=== PATIENT | male | born 1965 | race Caucasian/White ===

== ENCOUNTER 2021-05-11 10:39 | Inpatient (IN) ==
[2021-05-11] MEDS ORDERED: MULTI-VITAMIN INFUSION 10 ML, THIAMINE HCL 100 MG, FOLIC ACID 1 MG in SODIUM CHLORIDE 0... IV ONE (11:13)
[2021-05-11] MEDS ORDERED: LORazepam 1 MG/2 ML VIAL IV STA (11:13)
[2021-05-11] MEDS ORDERED: LORazepam 2 MG/4 ML VIAL IV STA (11:16)
--- NOTE | 2021-05-11 11:19 | Emergency Department Note ---
History of Present Illness General Chief complaint: Alcohol Withdrawal Stated complaint: Alcohol Withdrawal Time Seen by Provider: 05/11/21 11:06 Source: patient, family (Mother who is at the bedside) and old records reviewed Mode of arrival: ambulatory Limitations: no limitations History of Present Illness Maximum Pain Intensity: 10 This patient comes in after feeling like he is going to pass out and having alcohol withdrawal. He does have history of alcoholism and recently went on a binge for the last month or so where he was drinking about a 3/5 a day. His last alcohol was yesterday. He feels very shaky he feels like he is going to pass out. He has had some stomach upset. He had diarrhea couple days ago without any blood it may have been dark. Denies chest pain or shortness of breath. No fall or trauma. Denies drug use. Home Medications Medication Instructions Recorded Confirmed Type atorvastatin 40 mg tablet 40 mg PO DAILY #90 tab 11/11/19 05/11/21 Rx losartan 50 mg tablet 50 mg PO DAILY #90 tab 04/18/20 05/11/21 Rx fluoxetine 20 mg capsule 20 mg PO TID #270 cap 05/16/20 05/11/21 Rx ascorbate calcium-bioflavonoid 500 1 tab PO DAILY 05/11/21 05/11/21 History mg-200 mg tablet (Precious-C with Bioflavonoids) coenzyme Q10 100 mg capsule 100 mg PO DAILY 05/11/21 05/11/21 History (CoQ-10) folic acid 1 mg tablet 0 mg PO DAILY 05/11/21 05/11/21 History levomefolate disodium (bulk) 1 ea MISCELLANEOUS DAILY 05/11/21 05/11/21 History milk thistle 140 mg capsule 0 mg PO DAILY 05/11/21 05/11/21 History multivitamin 1 tab PO DAILY 05/11/21 05/11/21 History niacin 50 mg tablet 0 mg PO DAILY 05/11/21 05/11/21 History omeprazole 20 mg capsule,delayed 20 mg PO DAILY 05/11/21 05/11/21 History release turmeric 400 mg capsule 0 mg PO DAILY 05/11/21 05/11/21 History vitamin B complex 1 tab PO DAILY 05/11/21 05/11/21 History Allergies Allergy/AdvReac Type Severity Reaction Status Date / Time lisinopril AdvReac Cough Unverified 05/11/21 11:40 Past Med/Surg History Medical History (Updated 05/12/21 @ 18:54 by Mike Walter MD) Alcohol abuse Anxiety Depression Hyperlipidemia Hypertension Pneumonia Surgical History No history of previous surgery Family History Mother Anxiety Heart disease Hypertension Father Alcohol abuse Heart disease Hypertension Sister Anxiety Denies family history of Ovarian cancer Prostate cancer Myocardial infarction Breast cancer Colorectal cancer Social History Smoking Status: Current some day smoker Tobacco Type: Cigarettes Age Started Using Tobacco: 11; packs per day: 0.25; Cigarettes Per Day: 5; Second Hand Exposure: No; Do You Dip or Chew Tobacco: No; Hx Alcohol Use: Yes Alcohol type: hard liquor Hx Substance Use: No Preferred Language: Pashto Communication Ability: Effective Visual Impairment: No Limitations Hearing Ability: Normal 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[place] House Required: No Beliefs That Will Affect Care: None marital status: Single Current Living Situation: Parent current occupational status: unemployed How many Children do You have: 0 Other Information That Helps Us Care for You: No Feels Safe at Home: Yes Safety Concerns: Feels Safe At This Time Childhood Exposure to Second-Hand Smoke: No Dental Care, Regularly: No Physical Activity Frequency: 1-2 Times per Week Assistive Devices: Contacts, Glasses and Oxygen - at Night Review of Systems A total of 10 systems reviewed and were otherwise negative Physical Exam Vital Signs Vital Signs - 24 hr 05/11/21 10:54 05/11/21 11:28 Temperature 37 C Temperature Source Temporal Artery Scan Pulse Rate 106 H 98 H Pulse Rhythm Regular Respiratory Rate 18 20 Respiratory Effort / Characteristics Non-Labored Spontaneous Respiratory Depth Normal Respiratory Pattern Regular Blood Pressure 168/114 H Blood Pressure Mean 132 Blood Pressure Position Sitting Pulse Oximetry 97 99 Oxygen Delivery Method Room Air Room Air Sepsis Recent Fever Within 48 Hours No Sepsis New/Unexplained Change in Mental Status N/A Sepsis Action Taken by Nursing No Action Required General: Well developed well nourished shaky middle-age male who appears with normal mentation and in no acute respiratory distress, breathing comfortably on room air. Normal speech HEENT: Normal cephalic atraumatic. Pupils are equal round and reactive to light. Extraocular movements are intact. Oropharynx is pink with moist mucous membranes. No swelling of the mouth lips or tongue. Neck: Supple with a midline trachea. No meningeal signs or stiffness, no JVD or bruits. No Stridor. Chest: Clear to auscultation bilaterally. No wheezes or rhonchi. No increased work of breathing. Heart: Regular rate and rhythm without murmurs or gallops. Abdomen: Soft nontender, nondistended without rebound guarding or rigidity. Extremities: No cyanosis clubbing or edema. No calf tenderness or assymetry Spine/Back. Non tender to palpation. No CVA tenderness Skin: Good turgor without rashes. Neurologic exam: Cranial nerves two through 12 are intact. Motor and sensation are intact and symmetrical throughout. He does have a tremor. Course Administered Medications Famotidine (Famotidine 40 Mg Tablet) 40 mg PO QAM AMARI Stop: 06/11/21 08:59 Last Admin: 05/12/21 08:29 Dose: 40 mg Documented by: [id number] Fluoxetine HCl (Fluoxetine Hcl 20 Mg Cap) 20 mg PO TID AMARI Stop: 06/10/21 14:55 Last Admin: 05/12/21 13:57 Dose: 20 mg Documented by: [id number] Admin: 05/12/21 08:29 Dose: 20 mg Documented by: [id number] Admin: 05/11/21 21:27 Dose: 20 mg Documented by: [id number] Admin: 05/11/21 15:50 Dose: 20 mg Documented by: [id number] Gabapentin (Gabapentin 600 Mg Tab) 600 mg PO Q8H AMARI Stop: 05/13/21 06:01 Last Admin: 05/12/21 13:57 Dose: 600 mg Documented by: [id number] Thiamine HCl 100 mg/ Syringe 10 mls @ 2 mls/min IV QAM AMARI Stop: 06/10/21 14:55 Last Admin: 05/12/21 09:49 Dose: 2 mls/min Documented by: [id number] Admin: 05/11/21 15:49 Dose: 2 mls/min Documented by: [id number] Folic Acid 1 mg/ Syringe 10 mls @ 5 mls/min IV QAM AMARI Stop: 06/10/21 15:29 Last Admin: 05/12/21 09:49 Dose: 5 mls/min Documented by: [id number] Admin: 05/11/21 15:49 Dose: 5 mls/min Documented by: [id number] Lorazepam (Ativan) 1 mg in 2 mls @ 2 mls/min IV UD PRN; Protocol PRN Reason: EtOH Withdrawl AWSS Score 6,7 Stop: 06/10/21 14:55 Last Admin: 05/12/21 14:01 Dose: 2 mls/min Documented by: [id number] Admin: 05/12/21 08:28 Dose: 2 mls/min Documented by: [id number] Lorazepam (Ativan) 3 mg in 6 mls @ 4 mls/min IV ONCE PRN; Protocol PRN Reason: EtOH Withdrawl AWSS Score >=10 Stop: 06/10/21 14:55 Last Admin: 05/12/21 04:46 Dose: 4 mls/min Documented by: [id number] Admin: 05/11/21 22:10 Dose: 4 mls/min Documented by: [id number] Potassium Chloride/Sodium Chloride (Normal Saline W/20 Meq Kcl) 20 meq in 1,000 mls @ 150 mls/hr IV .Q6H40M [facility] Stop: 06/11/21 09:14 Last Admin: 05/12/21 16:54 Dose: 150 mls/hr Documented by: [id number] Infusion: 05/12/21 16:30 Dose: 150 mls/hr Documented by: [id number] Admin: 05/12/21 09:49 Dose: 150 mls/hr Documented by: [id number] Losartan Potassium (Losartan Potassium 50 Mg Tab) 50 mg PO DAILY [facility] Stop: 06/11/21 08:59 Last Admin: 05/12/21 08:27 Dose: 50 mg Documented by: [id number] Miscellaneous (Remove Nicoderm Patch) 1 ea N/A DAILY@0859 [facility] Stop: 06/11/21 08:58 Last Admin: 05/12/21 08:27 Dose: Not Given Documented by: [id number] Nicotine (Nicotine 21 Mg/24 Hr Tdsy) 21 mg TD QAM [facility] Stop: 06/11/21 08:59 Last Admin: 05/12/21 08:29 Dose: 21 mg Documented by: [id number] Discontinued Medications Diazepam (Diazepam 5 Mg Tablet) 10 mg PO NOW STA Stop: 05/11/21 13:39 Last Admin: 05/11/21 13:58 Dose: 10 mg Documented by: [id number] Gabapentin (Gabapentin 1200mg Alcohol Withdrawal Load) 1 ea PO NOW STA; Protocol Stop: 05/11/21 13:39 Last Admin: 05/11/21 15:33 Dose: Not Given Documented by: [id number] Gabapentin (Gabapentin 600 Mg Tab) 1,200 mg PO ONE ONE Stop: 05/11/21 14:01 Last Admin: 05/11/21 13:59 Dose: 1,200 mg Documented by: [id number] Gabapentin (Gabapentin 600 Mg Tab) 600 mg PO [facility] Stop: 05/12/21 06:01 Last Admin: 05/12/21 06:13 Dose: 600 mg Documented by: [id number] Admin: 05/11/21 21:27 Dose: 600 mg Documented by: [id number] Multivitamins 10 ml/ Thiamine HCl 100 mg/ Folic Acid 1 mg/Sodium Chloride 1,011.2 mls @ 1,011.2 mls/hr IV .Q1H ONE Stop: 05/11/21 12:12 Last Infusion: 05/11/21 12:35 Dose: 0 mls/hr Documented by: [id number] Admin: 05/11/21 11:35 Dose: 1,011.2 mls/hr Documented by: [id number] Lorazepam (Ativan) 2 mg in 4 mls @ 4 mls/min IV NOW STA Stop: 05/11/21 11:17 Last Admin: 05/11/21 11:29 Dose: 4 mls/min Documented by: [id number] Potassium Chloride 20 meq/ (Sodium Chloride) 1,010 mls @ 125 mls/hr IV .Q8H5M [facility] Stop: 05/12/21 07:05 Last Admin: 05/11/21 15:33 Dose: Not Given Documented by: [id number] Potassium Chloride/Sodium Chloride (Normal Saline W/20 Meq Kcl) 20 meq in 1,000 mls @ 125 mls/hr IV .Q8H AMARI Stop: 05/12/21 07:29 Last Infusion: 05/12/21 08:27 Dose: 0 mls/hr Documented by: [id number] Admin: 05/12/21 00:01 Dose: 125 mls/hr Documented by: [id number] Infusion: 05/11/21 23:49 Dose: 125 mls/hr Documented by: [id number] Admin: 05/11/21 15:49 Dose: 125 mls/hr Documented by: [id number] Potassium Chloride (Potassium Chloride Crtab 20 Meq Tabcr) 60 meq PO NOW STA Stop: 05/12/21 07:23 Last Admin: 05/12/21 08:28 Dose: 60 meq Documented by: [id number] Medical Decision Making Differential Diagnosis Alcohol withdrawal, dehydration, electrolyte or metabolic abnormality, toxicologic, cardiac disease Medical Records Attestation: I reviewed the patient's medical records. Home Medications Current Medication List: was personally reviewed by me Laboratory Data Attestation: I reviewed the patient's lab results. Result diagrams: 05/12/21 04:28 05/12/21 04:28 Lab Results 05/11/21 05/11/21 05/11/21 Range/Units 11:19 11:19 11:19 WBC 7.05 (4.8-10.8) K/uL RBC 4.55 L (4.7-6.1) M/uL Hgb 15.9 (14.0-18.0) g/dL Hct 44.1 (42-52) % MCV 96.9 (80-100) fL MCH 34.9 H (25-34) pg MCHC 36.1 H (32-36) g/dL RDW Std Deviation 48.6 H (36.4-46.3) fL RDW Coeff of Thelma 13.9 (11.5-14.5) % Plt Count 245 (130-400) K/uL MPV 8.5 (7.4-10.4) fL Immature Gran % (Auto) 0.3 % Neut % (Auto) 66.4 % Lymph % (Auto) 24.4 % [place] % (Auto) 8.5 % Eos % (Auto) 0.3 % Baso % (Auto) 0.1 % Neut # (Auto) 4.68 (1.4-6.5) K/uL Lymph # (Auto) 1.72 (1.2-3.4) K/uL [place] # (Auto) 0.60 H (0.11-0.59) K/uL Eos # (Auto) 0.02 (0-0.5) K/uL Baso # (Auto) 0.01 (0-0.2) K/uL Immature Gran # (Auto) 0.02 (0.00-0.02) K/uL PT 11.8 (9.0-12.0) Seconds INR 1.2 H (0.9-1.1) APTT 24.5 (21.0-31.0) Seconds PTT Ratio 0.9 Sodium 134 L (136-145) mmol/L Potassium 3.3 L (3.5-5.1) mmol/L Chloride 103 (98-107) mmol/L Carbon Dioxide 21 (21-32) mmol/L Anion Gap 10.0 (3-11) BUN 31 H (7-18) mg/dl Creatinine 0.90 (0.6-1.4) mg/dl Est Cr Clr Drug Dosing 83.0 ml/min Est GFR ( Amer) 110.3 ml/min Est GFR (Non-Af Amer) 95.1 ml/min BUN/Creatinine Ratio 34.7 H (10-20) Glucose 131 H (70-99) mg/dl POC Glucose (70-99) mg/dl Calcium 7.6 L (8.5-10.1) mg/dl Magnesium 2.3 (1.8-2.4) mg/dl Total Bilirubin 2.0 H (0.2-1) mg/dl AST 714 H (15-37) U/L ALT 692 H (12-78) U/L Alkaline Phosphatase 101 (45-117) U/L Troponin I < 0.015 (0-0.045) ng/ml Total Protein 6.8 (6.4-8.2) gm/dl Albumin 3.3 L (3.4-5.0) gm/dl Globulin 3.5 (2.5-4.0) gm/dl Albumin/Globulin Ratio 0.9 (0.9-2) Specimen Hemolysis Salicylates (2.8-20) mg/dl Acetaminophen (10-30) ug/ml Ethyl Alcohol mg/dL (0-3) mg/dl COVID-19 Eval Order SARS-CoV-2 (PCR) (Negative) 05/11/21 05/11/21 05/11/21 Range/Units 11:19 11:34 11:47 WBC (4.8-10.8) K/uL RBC (4.7-6.1) M/uL Hgb (14.0-18.0) g/dL Hct (42-52) % MCV (80-100) fL MCH (25-34) pg MCHC (32-36) g/dL RDW Std Deviation (36.4-46.3) fL RDW Coeff of Thelma (11.5-14.5) % Plt Count (130-400) K/uL MPV (7.4-10.4) fL Immature Gran % (Auto) % Neut % (Auto) % Lymph % (Auto) % [place] % (Auto) % Eos % (Auto) % Baso % (Auto) % Neut # (Auto) (1.4-6.5) K/uL Lymph # (Auto) (1.2-3.4) K/uL [place] # (Auto) (0.11-0.59) K/uL Eos # (Auto) (0-0.5) K/uL Baso # (Auto) (0-0.2) K/uL Immature Gran # (Auto) (0.00-0.02) K/uL PT (9.0-12.0) Seconds INR (0.9-1.1) APTT (21.0-31.0) Seconds PTT Ratio Sodium (136-145) mmol/L Potassium (3.5-5.1) mmol/L Chloride (98-107) mmol/L Carbon Dioxide (21-32) mmol/L Anion Gap (3-11) BUN (7-18) mg/dl Creatinine (0.6-1.4) mg/dl Est Cr Clr Drug Dosing ml/min Est GFR ( Amer) ml/min Est GFR (Non-Af Amer) ml/min BUN/Creatinine Ratio (10-20) Glucose (70-99) mg/dl POC Glucose 119 H (70-99) mg/dl Calcium (8.5-10.1) mg/dl Magnesium (1.8-2.4) mg/dl Total Bilirubin (0.2-1) mg/dl AST (15-37) U/L ALT (12-78) U/L Alkaline Phosphatase (45-117) U/L Troponin I (0-0.045) ng/ml Total Protein (6.4-8.2) gm/dl Albumin (3.4-5.0) gm/dl Globulin (2.5-4.0) gm/dl Albumin/Globulin Ratio (0.9-2) Specimen Hemolysis Salicylates < 1.7 L (2.8-20) mg/dl Acetaminophen < 2 L (10-30) ug/ml Ethyl Alcohol mg/dL 69.0 H (0-3) mg/dl COVID-19 Eval Order SARS-CoV-2 (PCR) (Negative) 05/11/21 05/11/21 Range/Units 12:33 12:33 WBC (4.8-10.8) K/uL RBC (4.7-6.1) M/uL Hgb (14.0-18.0) g/dL Hct (42-52) % MCV (80-100) fL MCH (25-34) pg MCHC (32-36) g/dL RDW Std Deviation (36.4-46.3) fL RDW Coeff of [place] (11.5-14.5) % Plt Count (130-400) K/uL MPV (7.4-10.4) fL Immature Gran % (Auto) % Neut % (Auto) % Lymph % (Auto) % [place] % (Auto) % Eos % (Auto) % Baso % (Auto) % Neut # (Auto) (1.4-6.5) K/uL Lymph # (Auto) (1.2-3.4) K/uL [place] # (Auto) (0.11-0.59) K/uL Eos # (Auto) (0-0.5) K/uL Baso # (Auto) (0-0.2) K/uL Immature Gran # (Auto) (0.00-0.02) K/uL PT (9.0-12.0) Seconds INR (0.9-1.1) APTT (21.0-31.0) Seconds PTT Ratio Sodium (136-145) mmol/L Potassium (3.5-5.1) mmol/L Chloride (98-107) mmol/L Carbon Dioxide (21-32) mmol/L Anion Gap (3-11) BUN (7-18) mg/dl Creatinine (0.6-1.4) mg/dl Est Cr Clr Drug Dosing ml/min Est GFR ( Amer) ml/min Est GFR (Non-Af Amer) ml/min BUN/Creatinine Ratio (10-20) Glucose (70-99) mg/dl POC Glucose (70-99) mg/dl Calcium (8.5-10.1) mg/dl Magnesium (1.8-2.4) mg/dl Total Bilirubin (0.2-1) mg/dl AST (15-37) U/L ALT (12-78) U/L Alkaline Phosphatase (45-117) U/L Troponin I (0-0.045) ng/ml Total Protein (6.4-8.2) gm/dl Albumin (3.4-5.0) gm/dl Globulin (2.5-4.0) gm/dl Albumin/Globulin Ratio (0.9-2) Specimen Hemolysis Salicylates (2.8-20) mg/dl Acetaminophen (10-30) ug/ml Ethyl Alcohol mg/dL (0-3) mg/dl COVID-19 Eval Order Covid19 at [facility] SARS-CoV-2 (PCR) NEGATIVE (Negative) ECG Data Attestation: I personally reviewed and interpreted this ECG as follows: Indication: + toxicologic and + weakness Rate (beats per minute): 100 Rhythm: + normal sinus ECG Intervals/blocks: + Normal QRS, + Prolonged QT and + Normal [place] ECG [place]: + Normal ECG ST segments: + Nonspecific ST abnormalities ECG Findings: + PVCs; no PACs Comparison ECG Date: from (07/21/15) Change: the following changes noted (PVCs are present) MDM Narrative This patient comes in as described above he presents with alcohol withdrawal. He is shaky and tachycardic as well as hypertensive. IV access established, I did order him Ativan 2 mg IV and he has had these doses before. He was also given an IV banana bag. Multiple blood testing was obtained. he was placed on a speed operator EKG was obtained. He was reassessed frequently. He was feeling a lot better with the Ativan his blood pressure did come down as did his pulse. He is certainly at high risk for withdrawal. He has no significant electrolyte or metabolic abnormalities. EKG does not show any ischemic changes or ectopy. I do think he needs to be admitted/observe for alcohol withdrawal. He is willing to go into rehab he has been in inpatient rehab 3 times but none locally. I have consulted hospitalist to see him in the ER for these measures. Covid testing was negative. Continuous speed operator: An order was placed in EMR for continuous cardiac monitoring and upon my interpretation the patient was noted to be sinus tachycardic at a rate of 100. Impression & Plan Alcohol withdrawal, Anxiety, Nausea, Weakness, Lab test negative for COVID-19 virus Discharge Plan Visit Data Chief Complaint: Alcohol Withdrawal Stated Complaint: Alcohol Withdrawal ED Provider: Mike Walter Discharge Problem: Alcohol withdrawal, Anxiety, Nausea, Weakness, Lab test negative for COVID-19 virus Patient Disposition: Admitted As Inpatient Discharge Instructions Interventions: ED Discharge Assessment Last Done: 05/11/21 14:25 Discharge Problem: Alcohol withdrawal Qualifiers: Complication of substance-induced condition: uncomplicated Qualified Code(s): F10.230 - Alcohol dependence with withdrawal, uncomplicated
[2021-05-11 11:48] LABS: Basophils # (auto) 0.01 K/uL (0-0.2); Basophils % (auto) 0.1 %; Eosinophils # (auto) 0.02 K/uL (0-0.5); Eosinophils % (auto) 0.3 %; Hematocrit (blood only) 44.1 % (42-52); Hemoglobin 15.9 g/dL (14.0-18.0); Immature Granulocytes # (auto) 0.02 K/uL (0.00-0.02); Immature Granulocytes % (auto) 0.3 %; Lymphocytes # (auto) 1.72 K/uL (1.2-3.4); Lymphocytes % (auto) 24.4 %; Mean Corpuscular Hemoglobin 34.9 pg (25-34); Mean Corpuscular Hgb Conc 36.1 g/dL (32-36); Mean Corpuscular Volume 96.9 fL (80-100); Mean Platelet Volume 8.5 fL (7.4-10.4); Monocytes % (auto) 8.5 %; Neutrophils # (auto) 4.68 K/uL (1.4-6.5); Neutrophils % (auto) 66.4 %; Platelet Count 245 K/uL (130-400); RDW Coefficient of Variation 13.9 % (11.5-14.5); RDW Standard Deviation 48.6 fL (36.4-46.3); Red Blood Count 4.55 M/uL (4.7-6.1); White Blood Count 7.05 K/uL (4.8-10.8)
[2021-05-11 11:57] LABS: INR 1.2 (0.9-1.1); Partial Thromboplastin Ratio 0.9; Partial Thromboplastin Time 24.5 Seconds (21.0-31.0); Prothrombin Time 11.8 Seconds (9.0-12.0)
[2021-05-11 12:32] LABS: Alanine Aminotransferase 692 U/L (12-78); Albumin Globulin Ratio 0.9 (0.9-2); Albumin Level 3.3 gm/dl (3.4-5.0); Alkaline Phosphatase 101 U/L (45-117); BUN Creatinine Ratio 34.7 (10-20); Blood Urea Nitrogen 31 mg/dl (7-18); Calcium 7.6 mg/dl (8.5-10.1); Carbon Dioxide 21 mmol/L (21-32); Chloride 103 mmol/L (98-107); Est GFR (African American) 110.3 ml/min; Est GFR (Non-African American) 95.1 ml/min; Globulin 3.5 gm/dl (2.5-4.0); Glucose 131 mg/dl (70-99); Total Protein 6.8 gm/dl (6.4-8.2); Troponin I < 0.015 ng/ml (0-0.045)
[2021-05-11 12:33] LABS: Acetaminophen < 2 ug/ml (10-30); Salicylate < 1.7 mg/dl (2.8-20)
[2021-05-11 12:47] LABS: Aspartate Aminotransferase 714 U/L (15-37); Magnesium 2.3 mg/dl (1.8-2.4); Potassium 3.3 mmol/L (3.5-5.1); Sodium 134 mmol/L (136-145)
[2021-05-11] MEDS ORDERED: diazePAM 5 MG TABLET PO STA (13:38)
[2021-05-11] MEDS ORDERED: GABAPENTIN 1200MG ALCOHOL WITHDRAWAL LOAD PO STA (13:38)
--- NOTE | 2021-05-11 13:40 | History & Physical Report ---
Date of Service May 11, 2021 Assessment & Plan (1) Alcohol withdrawal: Plan: 55yo male with longstanding history of EtOH abuse presenting in EtOH withdrawal. Patient admits to drinking 2-3 bottles of vodka/day for the last month. He has history of withdrawal symptoms, ?DTs in the past - no history of seizure. Last drink 05/10/21 around 19:00. EtoH level =69 today. Acute elevation of AST/ALT suggest alcoholic hepatitis. MDF 5.6 - no indication for steroids. Patient received banana bag x 1L in ER -Admit to PCU -Maintain seizure precautions -Valium 10mg po x 1, may repeat if patient is requiring frequent doses of IV Ativan -Gabapentin taper -AWSS with IV ativan PRN -Folic acid 1mg IV daily -Thiamine 100mg IV daily -Consider Psychiatry consultation and rehabilitation placement after acute issues resolve -Repeat LFTs in AM (2) GERD (gastroesophageal reflux disease): Plan: Chronic -Will give Pepcid 40mg po qAM (3) Hypertension: Plan: Blood pressure elevated -Withdrawal management as above -Continue losartan 50mg po daily -Continue to monitor (4) Hyperlipidemia: Plan: Chronic -Will hold statin for now in setting of elevated LFTs -Repeat LFTs in AM (5) Depression: Plan: Chronic. -Continue Prozac 20mg po TID as dosed at home -Consider Psychiatry evaluation Plan: F/E/N - NSS +KCl 20mEq x 2 liters at 125mL/hr, K repletion, repeat chemistry in AM, NPO for now Ppx - SCDs Code - Full per discussion with patient Dispo - Admit to PCU History of Present Illness Chief Complaint: EtOH withdrawal Primary Care Provider: Lenny Briceño Gregorio Perez is a 55yo male with history of Depression/Anxiety and EtOH abuse presenting with Etoh withdrawal. Patient's mother is at bedside as well and provides supplemental history. Patient reports being a fairly heavy drinker since 1989. He has participated in rehab in the past - [facility] x 2 and most recently [facility] in 2018. He has never been to AA and does not identify as "an alcoholic". He does acknowledge that his drinking is a problem. He presents today with EtoH withdrawal. His mother states that he drinks in secret and has been unable to maintain gainful employment - he has quit several jobs. He had been binge drinking since December - reports consuming 2-3 1/5L bottles of Vodka/day. Mother reports he has occasionally become incoherent with hallucinations during this binge. His last drink was yesterday around 19:00. He presents today with abdominal pain, nausea, vomiting, chills and sweats since last night. No additional complaints at this time. Allergies Allergy/AdvReac Type Severity Reaction Status Date / Time lisinopril AdvReac Cough Unverified 05/11/21 11:40 Home Medications Medication Instructions Recorded Confirmed Type atorvastatin 40 mg tablet 40 mg PO DAILY #90 tab 11/11/19 05/11/21 Rx losartan 50 mg tablet 50 mg PO DAILY #90 tab 04/18/20 05/11/21 Rx fluoxetine 20 mg capsule 20 mg PO TID #270 cap 05/16/20 05/11/21 Rx ascorbate calcium-bioflavonoid 500 1 tab PO DAILY 05/11/21 05/11/21 History mg-200 mg tablet (Precious-C with Bioflavonoids) coenzyme Q10 100 mg capsule 100 mg PO DAILY 05/11/21 05/11/21 History (CoQ-10) folic acid 1 mg tablet 0 mg PO DAILY 05/11/21 05/11/21 History levomefolate disodium (bulk) 1 ea MISCELLANEOUS DAILY 05/11/21 05/11/21 History milk thistle 140 mg capsule 0 mg PO DAILY 05/11/21 05/11/21 History multivitamin 1 tab PO DAILY 05/11/21 05/11/21 History niacin 50 mg tablet 0 mg PO DAILY 05/11/21 05/11/21 History omeprazole 20 mg capsule,delayed 20 mg PO DAILY 05/11/21 05/11/21 History release turmeric 400 mg capsule 0 mg PO DAILY 05/11/21 05/11/21 History vitamin B complex 1 tab PO DAILY 05/11/21 05/11/21 History Past Med/Surg History Medical History (Updated 05/11/21 @ 20:07 by Brenna Garza DO) Alcohol abuse Anxiety Depression Hyperlipidemia Hypertension Pneumonia Surgical History No history of previous surgery Family History Mother Anxiety Heart disease Hypertension Father Alcohol abuse Heart disease Hypertension Sister Anxiety Denies family history of Ovarian cancer Prostate cancer Myocardial infarction Breast cancer Colorectal cancer Social History Smoking Status: Current some day smoker Tobacco Type: Cigarettes Age Started Using Tobacco: 11; packs per day: 0.25; Cigarettes Per Day: 5; Second Hand Exposure: No; Hx Alcohol Use: Yes Alcohol type: hard liquor Hx Substance Use: No Preferred Language: Guinean Communication Ability: Effective Visual Impairment: No Limitations Hearing Ability: Normal Tree Wrapper Required: No Beliefs That Will Affect Care: None marital status: Single Current Living Situation: Parent current occupational status: unemployed Other Information That Helps Us Care for You: No Feels Safe at Home: Yes Safety Concerns: Feels Safe At This Time Childhood Exposure to Second-Hand Smoke: No Dental Care, Regularly: No Physical Activity Frequency: 1-2 Times per Week Assistive Devices: Contacts and Glasses Review of Systems Review of Systems: General: Patient denies fevers, chills Skin: Patient denies bruising, bleeding or rash HEENT: Patient denies headache, visual changes, sore throat, difficulty swallowing, stiff neck Cardio: Patient denies chest pain, palpitations, shortness of breath, lighth eadedness Pulmonary: Patient denies cough, wheeze GI: Patient denies diarrhea, constipation : Patient denies dysuria, frequency, urgency or hematuria Musculoskeletal: Patient denies swelling or pain of the joints, edema Neuro: Patient denies numbness, tingling, weakness or falls Psych: Patient denies depression, anxiety Physical Exam Physical Exam: General: patient tremulous, mildly diaphoretic Skin: warm, dry, intact, no rashes or lesions HEENT: NC/AT, PERRL, EOMI, anicteric sclera, conjunctiva without injection, external ear normal to inspection and nontender, nares patent, moist mucus membranes, dentition intact, no oropharyngeal lesions, neck supple, trachea midline, no LAD, no thyromegaly, no JVD Heart: +S1/S2, regular, no m/r/g Lungs: equal air entry bilaterally, no rales/rhonchi/wheezes Abd: +BS, soft, NT/ND, no masses/organomegaly/ascites Ext: warm, 2+ pulses in UE/LE bilaterally, no clubbing/cyanosis or edema Neuro: nonfocal, patient AA&O x 4, speech intact, no facial droop, moving all extremities on command with equal strength 5/5 Results & Data Results & Data ([facility]) Vital Signs (Past 12 Hours) Vital Signs Temp Pulse Resp BP Pulse Ox 05/11/21 11:28 98 H 20 99 05/11/21 10:54 37 C 106 H 18 168/114 H 97 Laboratory Results Lab Results 05/11/21 05/11/21 05/11/21 Range/Units 11:19 11:19 11:19 WBC 7.05 (4.8-10.8) K/uL RBC 4.55 L (4.7-6.1) M/uL Hgb 15.9 (14.0-18.0) g/dL Hct 44.1 (42-52) % MCV 96.9 (80-100) fL MCH 34.9 H (25-34) pg MCHC 36.1 H (32-36) g/dL RDW Std Deviation 48.6 H (36.4-46.3) fL RDW Coeff of Thelma 13.9 (11.5-14.5) % Plt Count 245 (130-400) K/uL MPV 8.5 (7.4-10.4) fL Immature Gran % (Auto) 0.3 % Neut % (Auto) 66.4 % Lymph % (Auto) 24.4 % Dillon % (Auto) 8.5 % Eos % (Auto) 0.3 % Baso % (Auto) 0.1 % Neut # (Auto) 4.68 (1.4-6.5) K/uL Lymph # (Auto) 1.72 (1.2-3.4) K/uL Dillon # (Auto) 0.60 H (0.11-0.59) K/uL Eos # (Auto) 0.02 (0-0.5) K/uL Baso # (Auto) 0.01 (0-0.2) K/uL Immature Gran # (Auto) 0.02 (0.00-0.02) K/uL PT 11.8 (9.0-12.0) Seconds INR 1.2 H (0.9-1.1) APTT 24.5 (21.0-31.0) Seconds PTT Ratio 0.9 Sodium 134 L (136-145) mmol/L Potassium 3.3 L (3.5-5.1) mmol/L Chloride 103 (98-107) mmol/L Carbon Dioxide 21 (21-32) mmol/L Anion Gap 10.0 (3-11) BUN 31 H (7-18) mg/dl Creatinine 0.90 (0.6-1.4) mg/dl Est Cr Clr Drug Dosing 83.0 ml/min Est GFR ( Amer) 110.3 ml/min Est GFR (Non-Af Amer) 95.1 ml/min BUN/Creatinine Ratio 34.7 H (10-20) Glucose 131 H (70-99) mg/dl POC Glucose (70-99) mg/dl Calcium 7.6 L (8.5-10.1) mg/dl Magnesium 2.3 (1.8-2.4) mg/dl Total Bilirubin 2.0 H (0.2-1) mg/dl AST 714 H (15-37) U/L ALT 692 H (12-78) U/L Alkaline Phosphatase 101 (45-117) U/L Troponin I < 0.015 (0-0.045) ng/ml Total Protein 6.8 (6.4-8.2) gm/dl Albumin 3.3 L (3.4-5.0) gm/dl Globulin 3.5 (2.5-4.0) gm/dl Albumin/Globulin Ratio 0.9 (0.9-2) Vitamin B12 (193-986) pg/ml Folate (>5.38) ng/ml Specimen Hemolysis Nasal Screen MRSA (PCR) (Negative) Salicylates (2.8-20) mg/dl Urine Opiates Screen (Neg) Ur Methadone, Qual (Neg) Acetaminophen (10-30) ug/ml Urine Barbiturates (Neg) Ur Phencyclidine (PCP) (Neg) U Amphetamin/Meth Scrn (Neg) MDMA (Ecstasy) Screen (Neg) U Benzodiazepines Scrn (Neg) Ur Cocaine Metabolite (Neg) U Marijuana (THC) Screen (Neg) Ethyl Alcohol mg/dL (0-3) mg/dl COVID-19 Eval Order SARS-CoV-2 (PCR) (Negative) 05/11/21 05/11/2105/11/21 Range/Units 11:19 11:34 11:47 WBC (4.8-10.8) K/uL RBC (4.7-6.1) M/uL Hgb (14.0-18.0) g/dL Hct (42-52) % MCV (80-100) fL MCH (25-34) pg MCHC (32-36) g/dL RDW Std Deviation (36.4-46.3) fL RDW Coeff of Thelma (11.5-14.5) % Plt Count (130-400) K/uL MPV (7.4-10.4) fL Immature Gran % (Auto) % Neut % (Auto) % Lymph % (Auto) % Dillon % (Auto) % Eos % (Auto) % Baso % (Auto) % Neut # (Auto) (1.4-6.5) K/uL Lymph # (Auto) (1.2-3.4) K/uL Dillon # (Auto) (0.11-0.59) K/uL Eos # (Auto) (0-0.5) K/uL Baso # (Auto) (0-0.2) K/uL Immature Gran # (Auto) (0.00-0.02) K/uL PT (9.0-12.0) Seconds INR (0.9-1.1) APTT (21.0-31.0) Seconds PTT Ratio Sodium (136-145) mmol/L Potassium (3.5-5.1) mmol/L Chloride (98-107) mmol/L Carbon Dioxide (21-32) mmol/L Anion Gap (3-11) BUN (7-18) mg/dl Creatinine (0.6-1.4) mg/dl Est Cr Clr Drug Dosing ml/min Est GFR ( Amer) ml/min Est GFR (Non-Af Amer) ml/min BUN/Creatinine Ratio (10-20) Glucose (70-99) mg/dl POC Glucose 119 H (70-99) mg/dl Calcium (8.5-10.1) mg/dl Magnesium (1.8-2.4) mg/dl Total Bilirubin (0.2-1) mg/dl AST (15-37) U/L ALT (12-78) U/L Alkaline Phosphatase (45-117) U/L Troponin I (0-0.045) ng/ml Total Protein (6.4-8.2) gm/dl Albumin (3.4-5.0) gm/dl Globulin (2.5-4.0) gm/dl Albumin/Globulin Ratio (0.9-2) Vitamin B12 (193-986) pg/ml Folate (>5.38) ng/ml Specimen Hemolysis Nasal Screen MRSA (PCR) (Negative) Salicylates < 1.7 L (2.8-20) mg/dl Urine Opiates Screen (Neg) Ur Methadone, Qual (Neg) Acetaminophen < 2 L (10-30) ug/ml Urine Barbiturates (Neg) Ur Phencyclidine (PCP) (Neg) U Amphetamin/Meth Scrn (Neg) MDMA (Ecstasy) Screen (Neg) U Benzodiazepines Scrn (Neg) Ur Cocaine Metabolite (Neg) U Marijuana (THC) Screen (Neg) Ethyl Alcohol mg/dL 69.0 H (0-3) mg/dl COVID-19 Eval Order SARS-CoV-2 (PCR) (Negative) 05/11/21 05/11/21 05/11/21 Range/Units 12:33 12:33 13:45 WBC (4.8-10.8) K/uL RBC (4.7-6.1) M/uL Hgb (14.0-18.0) g/dL Hct (42-52) % MCV (80-100) fL MCH (25-34) pg MCHC (32-36) g/dL RDW Std Deviation (36.4-46.3) fL RDW Coeff of Thelma (11.5-14.5) % Plt Count (130-400) K/uL MPV (7.4-10.4) fL Immature Gran % (Auto) % Neut % (Auto) % Lymph % (Auto) % Dillon % (Auto) % Eos % (Auto) % Baso % (Auto) % Neut # (Auto) (1.4-6.5) K/uL Lymph # (Auto) (1.2-3.4) K/uL Dillon # (Auto) (0.11-0.59) K/uL Eos # (Auto) (0-0.5) K/uL Baso # (Auto) (0-0.2) K/uL Immature Gran # (Auto) (0.00-0.02) K/uL PT (9.0-12.0) Seconds INR (0.9-1.1) APTT (21.0-31.0) Seconds PTT Ratio Sodium (136-145) mmol/L Potassium (3.5-5.1) mmol/L Chloride (98-107) mmol/L Carbon Dioxide (21-32) mmol/L Anion Gap (3-11) BUN (7-18) mg/dl Creatinine (0.6-1.4) mg/dl Est Cr Clr Drug Dosing ml/min Est GFR ( Amer) ml/min Est GFR (Non-Af Amer) ml/min BUN/Creatinine Ratio (10-20) Glucose (70-99) mg/dl POC Glucose (70-99) mg/dl Calcium (8.5-10.1) mg/dl Magnesium (1.8-2.4) mg/dl Total Bilirubin (0.2-1) mg/dl AST (15-37) U/L ALT (12-78) U/L Alkaline Phosphatase (45-117) U/L Troponin I (0-0.045) ng/ml Total Protein (6.4-8.2) gm/dl Albumin (3.4-5.0) gm/dl Globulin (2.5-4.0) gm/dl Albumin/Globulin Ratio (0.9-2) Vitamin B12 (193-986) pg/ml Folate (>5.38) ng/ml Specimen Hemolysis Nasal Screen MRSA (PCR) (Negative) Salicylates (2.8-20) mg/dl Urine Opiates Screen Neg (Neg) Ur Methadone, Qual Neg (Neg) Acetaminophen (10-30) ug/ml Urine Barbiturates Neg (Neg) Ur Phencyclidine (PCP) Neg (Neg) U Amphetamin/Meth Scrn Neg (Neg) MDMA (Ecstasy) Screen Neg (Neg) U Benzodiazepines Scrn Neg (Neg) Ur Cocaine Metabolite Neg (Neg) U Marijuana (THC) Screen Neg (Neg) Ethyl Alcohol mg/dL (0-3) mg/dl COVID-19 Eval Order Covid19 at [facility] SARS-CoV-2 (PCR) NEGATIVE (Negative) 05/11/21 05/11/21 Range/Units 15:21 15:30 WBC (4.8-10.8) K/uL RBC (4.7-6.1) M/uL Hgb (14.0-18.0) g/dL Hct (42-52) % MCV (80-100) fL MCH (25-34) pg MCHC (32-36) g/dL RDW Std Deviation (36.4-46.3) fL RDW Coeff of Thelma (11.5-14.5) % Plt Count (130-400) K/uL MPV (7.4-10.4) fL Immature Gran % (Auto) % Neut % (Auto) % Lymph % (Auto) % Dillon % (Auto) % Eos % (Auto) % Baso % (Auto) % Neut # (Auto) (1.4-6.5) K/uL Lymph # (Auto) (1.2-3.4) K/uL Dillon # (Auto) (0.11-0.59) K/uL Eos # (Auto) (0-0.5) K/uL Baso # (Auto) (0-0.2) K/uL Immature Gran # (Auto) (0.00-0.02) K/uL PT (9.0-12.0) Seconds INR (0.9-1.1) APTT (21.0-31.0) Seconds PTT Ratio Sodium (136-145) mmol/L Potassium (3.5-5.1) mmol/L Chloride (98-107) mmol/L Carbon Dioxide (21-32) mmol/L Anion Gap (3-11) BUN (7-18) mg/dl Creatinine (0.6-1.4) mg/dl Est Cr Clr Drug Dosing ml/min Est GFR ( Amer) ml/min Est GFR (Non-Af Amer) ml/min BUN/Creatinine Ratio (10-20) Glucose (70-99) mg/dl POC Glucose (70-99) mg/dl Calcium (8.5-10.1) mg/dl Magnesium (1.8-2.4) mg/dl Total Bilirubin (0.2-1) mg/dl AST (15-37) U/L ALT (12-78) U/L Alkaline Phosphatase (45-117) U/L Troponin I (0-0.045) ng/ml Total Protein (6.4-8.2) gm/dl Albumin (3.4-5.0) gm/dl Globulin (2.5-4.0) gm/dl Albumin/Globulin Ratio (0.9-2) Vitamin B12 1007 H (193-986) pg/ml Folate > 20.00 (>5.38) ng/ml Specimen Hemolysis Nasal Screen MRSA (PCR) Negative (Negative) Salicylates (2.8-20) mg/dl Urine Opiates Screen (Neg) Ur Methadone, Qual (Neg) Acetaminophen (10-30) ug/ml Urine Barbiturates (Neg) Ur Phencyclidine (PCP) (Neg) U Amphetamin/Meth Scrn (Neg) MDMA (Ecstasy) Screen (Neg) U Benzodiazepines Scrn (Neg) Ur Cocaine Metabolite (Neg) U Marijuana (THC) Screen (Neg) Ethyl Alcohol mg/dL (0-3) mg/dl COVID-19 Eval Order SARS-CoV-2 (PCR) (Negative) PG Care Time/CCT Total # of Minutes Spent Total Time Spent with Patient: Total time spent is greater than 50% in coordination of care (as documented) at patient's floor/unit and/or counseling patient: Coding Level of Care Code 79123 Initial Inpt Care Lvl 3 Diagnoses Alcohol withdrawal F10.230 Complication of substance-induced condition: uncomplicated GERD (gastroesophageal reflux disease) K21.9 Hypertension I10 Hyperlipidemia E78.5 Depression F32.9 (1) Alcohol withdrawal Complication of substance-induced condition: uncomplicated Qualified Code(s): F10.230 - Alcohol dependence with withdrawal, uncomplicated
[2021-05-11] MEDS ORDERED: GABAPENTIN 600 MG TAB PO ONE ×2 (14:00→14:56)
[2021-05-11 14:17] LABS: Amphetamines+Metham, Urine Neg (Neg); Barbiturates, Urine Neg (Neg); Benzodiazepine, Urine Neg (Neg); Cocaine, Urine Neg (Neg); MDMA (Ecstacy), Urine Neg (Neg); Methadone, Urine Neg (Neg); Opiate, Urine Neg (Neg); Phencyclidine, Urine Neg (Neg)
--- NOTE | 2021-05-11 14:25 | Electrocardiogram Report ---
Test Reason : Blood Pressure : / mmHG Vent. Rate : 100 BPM Atrial Rate : 100 BPM P-R Int : 146 ms QRS Dur : 090 ms QT Int : 360 ms P-R-T Axes : 048 044 119 degrees QTc Int : 464 ms Sinus rhythm with occasional Premature ventricular complexes Diffuse Nonspecific T wave abnormality Prolonged QT Abnormal ECG When compared with ECG of 21-JUL-2015 16:52, Premature ventricular complexes are now Present Confirmed by Giovany Samson ([id number]) on 05/11/2021 2:24:49 PM Referred By: REFERRED SELF Confirmed By:Giovany Samson
[2021-05-11] MEDS ORDERED: POTASSIUM CHLORIDE 20 MEQ in SODIUM CHLORIDE 0.9% 1000ML 1,000 ML IV SCH (14:56)
[2021-05-11] MEDS ORDERED: ATIVAN IV ALCOHOL WITHDRAWL IV PRN (14:56)
[2021-05-11] MEDS: THIAMINE HCL 100 MG in SYRINGE 9 ML IV SCH (15:49)
[2021-05-11] MEDS: NSS + 20MEQ KCL 20 MEQ/1,000 ML BAG IV SCH (15:49)
[2021-05-11] MEDS: FOLIC ACID 1 MG in SYRINGE 9.8 ML IV SCH (15:49)
[2021-05-11] MEDS: FLUoxetine HCL 20 MG CAP PO SCH ×2 (15:50→21:27)
[2021-05-11 16:27] LABS: Folate (Folic Acid) > 20.00 ng/ml (>5.38); Vitamin B12 1007 pg/ml (193-986)
[2021-05-11] MEDS ORDERED: GABAPENTIN 600 MG TAB PO SCH (20:00)
[2021-05-11] MEDS: GABAPENTIN 600 MG TAB PO SCH (21:27)
[2021-05-11] MEDS: LORazepam 3 MG/6 ML VIAL IV PRN (22:10)
[2021-05-12] MEDS: NSS + 20MEQ KCL 20 MEQ/1,000 ML BAG IV SCH ×4 (00:01→23:58)
[2021-05-12 04:43] LABS: Basophils # (auto) 0.01 K/uL (0-0.2); Basophils % (auto) 0.1 %; Eosinophils # (auto) 0.15 K/uL (0-0.5); Eosinophils % (auto) 1.8 %; Hematocrit (blood only) 40.4 % (42-52); Hemoglobin 14.3 g/dL (14.0-18.0); Immature Granulocytes # (auto) 0.03 K/uL (0.00-0.02); Immature Granulocytes % (auto) 0.4 %; Lymphocytes # (auto) 2.33 K/uL (1.2-3.4); Lymphocytes % (auto) 28.5 %; Mean Corpuscular Hemoglobin 34.4 pg (25-34); Mean Corpuscular Hgb Conc 35.4 g/dL (32-36); Mean Corpuscular Volume 97.1 fL (80-100); Mean Platelet Volume 8.3 fL (7.4-10.4); Monocytes # (auto) 0.69 K/uL (0.11-0.59); Monocytes % (auto) 8.4 %; Neutrophils # (auto) 4.96 K/uL (1.4-6.5); Neutrophils % (auto) 60.8 %; Platelet Count 179 K/uL (130-400); RDW Coefficient of Variation 13.8 % (11.5-14.5); RDW Standard Deviation 48.6 fL (36.4-46.3); Red Blood Count 4.16 M/uL (4.7-6.1); White Blood Count 8.17 K/uL (4.8-10.8)
[2021-05-12] MEDS: LORazepam 3 MG/6 ML VIAL IV PRN (04:46)
[2021-05-12 04:51] LABS: INR 1.2 (0.9-1.1); Prothrombin Time 11.8 Seconds (9.0-12.0)
[2021-05-12 05:10] LABS: Albumin Level 2.9 gm/dl (3.4-5.0); BUN Creatinine Ratio 22.8 (10-20); Bilirubin,Total 2.5 mg/dl (0.2-1); Calcium 6.9 mg/dl (8.5-10.1); Creatinine Clr Calc Pharmacy 103.5 ml/min; Est GFR (African American) 120.2 ml/min; Est GFR (Non-African American) 103.7 ml/min; Potassium 3.1 mmol/L (3.5-5.1); Total Protein 5.7 gm/dl (6.4-8.2)
[2021-05-12] MEDS: GABAPENTIN 600 MG TAB PO SCH ×3 (06:13→21:29)
[2021-05-12] MEDS ORDERED: POTASSIUM CHLORIDE CRTAB 20 MEQ TABCR PO STA (07:22)
[2021-05-12] MEDS: LOSARTAN POTASSIUM 50 MG TAB PO SCH (08:27)
[2021-05-12] MEDS: LORazepam 1 MG/2 ML VIAL IV PRN ×5 (08:28→23:11)
[2021-05-12] MEDS: FLUoxetine HCL 20 MG CAP PO SCH ×3 (08:29→21:29)
[2021-05-12] MEDS: NICOTINE 21 MG/24 HR TDSY TD SCH (08:29)
[2021-05-12] MEDS: FAMOTIDINE 40 MG TABLET PO SCH (08:29)
--- NOTE | 2021-05-12 09:25 | Ultrasound Report ---
US liver CLINICAL HISTORY: 55 years-old Male presenting with eval for pancreatitis/gallstone. TECHNIQUE: Real-time grayscale ultrasound imaging of the upper abdomen was performed for a focused ev aluation at the site of clinical concern. COMPARISON: None. FINDINGS: Visualized portion of the pancreas shows no evidence of acute abnormalities. Liver is slightly prominent measuring 17 cm in size with diffuse increase in echogenicity and coarsen ing of echotexture of its parenchyma without evidence of focal lesions or intrahepatic biliary dilata tion. Gallbladder is fluid-filled without intraluminal calculi to suggest gallstones. Possible small amount of biliary sludge is seen on its dependent portion. No evidence of pericholecystic edema. Gallbladde r wall is nondilated. Common bile duct is nondilated measuring 4 mm in diameter. Partially visualized right kidney shows no evidence of hydronephrosis. IMPRESSION: 1. Hepatic steatosis. 2. No sonographic evidence of cholelithiasis or cholecystitis. Possible mild gallbladder sludge. Non dilated common bile duct. 3. Partially visualized pancreas without evidence of inflammatory changes. ACT 112: Negative or not required by law. Electronically signed by: La Franco DO 05/12/2021 9:23 AM
[2021-05-12] MEDS: FOLIC ACID 1 MG in SYRINGE 9.8 ML IV SCH (09:49)
[2021-05-12] MEDS: THIAMINE HCL 100 MG in SYRINGE 9 ML IV SCH (09:49)
--- NOTE | 2021-05-12 10:49 | Medical Student Progress Note ---
Date of Service May 12, 2021 Assessment & Plan (1) Alcohol withdrawal: Plan: Mr. Perez is a 55 y/o male with longstanding history of EtOH use disorder and Hx of depression, anxiety, HTN, HTD who presented to the ED on 05/11 in EtOH withdrawal. Overall, patient is doing better since admission. He has an elevated lipase, AST/ALT, and direct bilirubinemia. Alcohol Withdrawal: -Maintain seizure precautions, AWSS with IV ativan PRN -Continue gabapentin taper -Folic acid 1mg IV daily -Thiamine 100mg IV daily -Consider rehabilitation placement after acute issues resolve Abdominal Pain: -Localized to midepigastric area with radiation to the back; LLQ pain -Elevated lipase, LFTs, direct hyperbilirubinemia -Liver u/s findings: hepatic steatosis, no evidence of cholelithiasis/cholecystitis or CBD dilation, mild GB sludge, no inflammation seen on partially visualized pancreas -Possible etiologies include pancreatitis 2/2 EtOH use or previous gallstone passage vs alcoholic hepatitis -IVF: NSS + KCl 10 mEq 150 mL/hr -Slowly advance diet to clear liquids and advance as tolerated -Repeat CMP in AM Hypokalemia: -K: 3.1 -Repleted with oral potassium supplement -IVF: NSS + KCl 10 mEq 150 mL/hr -Monitor with CMP GERD, Chronic: -Pepcid 40 mg PO qAM HTN: -Withdrawal management as above -Continue losartan 50 mg PO daily -Monitor HLD: -Holding statin due to elevated LFTs Depression: -Continue Prozac 20mg po TID as dosed at home FEN/GI: NSS +KCl 10mEq at 150mL/hr, clear liquids - advance as tolerated DVT PPx: SCDs Code: Full Dispo: PCU Complication of substance-induced condition: uncomplicated Qualified Code(s): F10.230 - Alcohol dependence with withdrawal, uncomplicated (2) GERD (gastroesophageal reflux disease): (3) Hypertension: (4) Hyperlipidemia: (5) Depression: Admission and Anticipated Discharge Date Admission Date: May 11, 2021 Subjective Overall, patient is doing okay. He is receiving IV ativan at the time of the interview. More information about his reasoning on coming to the ED and background about his drinking was elicited. His mother insisted that he come in. Leading up to admission, he mentions lower abdominal pain bilaterally for the past few days that radiates to his back on both sides. There is also mention of occasional pain in his left upper abdomen that's been present for many months. He also endorses constant vomiting and retching since December, when he began drinking again. Before December, he had been sober since his last stint in rehab in 2018. Two triggers he identifies is him not liking his work situation and living with his controlling mother, both of which increase his anxiety and he uses alcohol to cope. Mr. Perez has gone through alcohol withdrawal in the past, but does not endorse having any seizures during those episodes. When asked where he saw himself beyond his hospitalization, he says, "I'm just kind of lost right now." He has been to AA in the past, but lacks interest in going back because he didn't like it. He does express interest in receiving help and accountability, but would like to pursue another avenue. Review of Systems Review of Systems: General: Patient denies fevers, chills Skin: Patient denies bruising, bleeding or rash HEENT: Patient denies headache, visual changes, sore throat, difficulty swallowing, stiff neck Cardio: Patient denies chest pain, palpitations, shortness of breath, lightheadedness Pulmonary: Patient denies cough, wheeze GI: Patient denies diarrhea, constipation : Patient denies dysuria, frequency, urgency or hematuria Musculoskeletal: Patient denies swelling or pain of the joints, edema Neuro: Patient denies numbness, tingling, weakness or falls Psych: Patient denies depression, anxiety Physical Exam Physical Exam: General: patient mildly tremulous, tearful when speaking about his drinking HEENT: NC/AT, anicteric sclera, conjunctiva without injection Abd: bowel sounds in all 4 quadrants, mid-epigastric pain and LLQ pain to palpation, soft, no abdominal distention, no masses/organomegaly/ascites Heart: +S1/S2, regular, no m/r/g Lungs: equal air entry bilaterally, no rales/rhonchi/wheezes Neuro: nonfocal, patient alert, speech intact, no facial droop, moving all extremities on command Skin: warm, dry, intact, no rashes or lesions Results & Data ([facility]) Vital Signs (Past 12 Hours) Vital Signs Temp Pulse Pulse Resp BP BP Pulse Ox 05/12/21 08:03 36.8 C 85 18 142/63 H 96 05/12/21 05:49 37.9 C H 84 19 136/95 100 05/12/21 04:49 91 H 18 148/97 H 97 05/12/21 03:49 96 H 23 136/97 98 05/12/21 02:49 97 H 19 122/92 96 05/12/21 01:49 95 H 21 119/89 99 05/12/21 00:49 100 H 19 138/99 94 05/11/21 23:49 101 H 19 127/104 H 100 05/11/21 22:49 94 H 26 H 142/106 H 83 L Laboratory Results Laboratory Results WBC 8.17 K/uL (4.8-10.8) 05/12/21 04:28 RBC 4.16 M/uL (4.7-6.1) L 05/12/21 04:28 Hgb 14.3 g/dL (14.0-18.0) 05/12/21 04:28 Hct 40.4 % (42-52) L 05/12/21 04:28 MCV 97.1 fL (80-100) 05/12/21 04:28 MCH 34.4 pg (25-34) H 05/12/21 04:28 MCHC 35.4 g/dL (32-36) 05/12/21 04:28 RDW Std Deviation 48.6 fL (36.4-46.3) H 05/12/21 04:28 RDW Coeff of Thelma 13.8 % (11.5-14.5) 05/12/21 04:28 Plt Count 179 K/uL (130-400) 05/12/21 04:28 MPV 8.3 fL (7.4-10.4) 05/12/21 04:28 Immature Gran % (Auto) 0.4 % 05/12/21 04:28 Neut % (Auto) 60.8 % 05/12/21 04:28 Lymph % (Auto) 28.5 % 05/12/21 04:28 [place] % (Auto) 8.4 % 05/12/21 04:28 Eos % (Auto) 1.8 % 05/12/21 04:28 Baso % (Auto) 0.1 % 05/12/21 04:28 Neut # (Auto) 4.96 K/uL (1.4-6.5) 05/12/21 04:28 Lymph # (Auto) 2.33 K/uL (1.2-3.4) 05/12/21 04:28 [place] # (Auto) 0.69 K/uL (0.11-0.59) H 05/12/21 04:28 Eos # (Auto) 0.15 K/uL (0-0.5) 05/12/21 04:28 Baso # (Auto) 0.01 K/uL (0-0.2) 05/12/21 04:28 Immature Gran # (Auto) 0.03 K/uL (0.00-0.02) H 05/12/21 04:28 PT 11.8 Seconds (9.0-12.0) 05/12/21 04:28 INR 1.2 (0.9-1.1) H 05/12/21 04:28 APTT 24.5 Seconds (21.0-31.0) 05/11/21 11:19 PTT Ratio 0.9 05/11/21 11:19 Sodium 135 mmol/L (136-145) L 05/12/21 04:28 Potassium 3.1 mmol/L (3.5-5.1) L 05/12/21 04:28 Chloride 105 mmol/L (98-107) 05/12/21 04:28 Carbon Dioxide 25 mmol/L (21-32) 05/12/21 04:28 Anion Gap 5.0 (3-11) 05/12/21 04:28 BUN 17 mg/dl (7-18) 05/12/21 04:28 Creatinine 0.73 mg/dl (0.6-1.4) 05/12/21 04:28 Est Cr Clr Drug Dosing 103.5 ml/min 05/12/21 04:28 Est GFR ( Amer) 120.2 ml/min 05/12/21 04:28 Est GFR (Non-Af Amer) 103.7 ml/min 05/12/21 04:28 BUN/Creatinine Ratio 22.8 (10-20) H 05/12/21 04:28 Glucose 83 mg/dl (70-99) 05/12/21 04:28 POC Glucose 119 mg/dl (70-99) H 05/11/21 11:34 Calcium 6.9 mg/dl (8.5-10.1) L 05/12/21 04:28 Magnesium 2.3 mg/dl (1.8-2.4) 05/11/21 11:19 Total Bilirubin 2.5 mg/dl (0.2-1) H 05/12/21 04:28 Direct Bilirubin 1.0 mg/dl (0-0.2) H 05/12/21 04:28 AST 469 U/L (15-37) H 05/12/21 04:28 ALT 495 U/L (12-78) H 05/12/21 04:28 Alkaline Phosphatase 109 U/L (45-117) 05/12/21 04:28 Troponin I < 0.015 ng/ml (0-0.045) 05/11/21 11:19 Total Protein 5.7 gm/dl (6.4-8.2) L 05/12/21 04:28 Albumin 2.9 gm/dl (3.4-5.0) L 05/12/21 04:28 Globulin 3.5 gm/dl (2.5-4.0) 05/11/21 11:19 Albumin/Globulin Ratio 0.9 (0.9-2) 05/11/21 11:19 Lipase 1154 U/L (73-393) H 05/12/21 04:38 Vitamin B12 1007 pg/ml (193-986) H 05/11/21 15:21 Folate > 20.00 ng/ml (>5.38) 05/11/21 15:21 Specimen Hemolysis 05/11/21 11:19 Nasal Screen MRSA (PCR) Negative (Negative) 05/11/21 15:30 Salicylates < 1.7 mg/dl (2.8-20) L 05/11/21 11:19 Urine Opiates Screen Neg (Neg) 05/11/21 13:45 Ur Methadone, Qual Neg (Neg) 05/11/21 13:45 Acetaminophen < 2 ug/ml (10-30) L 05/11/21 11:19 Urine Barbiturates Neg (Neg) 05/11/21 13:45 Ur Phencyclidine (PCP) Neg (Neg) 05/11/21 13:45 U Amphetamin/Meth Scrn Neg (Neg) 05/11/21 13:45 MDMA (Ecstasy) Screen Neg (Neg) 05/11/21 13:45 U Benzodiazepines Scrn Neg (Neg) 05/11/21 13:45 Ur Cocaine Metabolite Neg (Neg) 05/11/21 13:45 U Marijuana (THC) Screen Neg (Neg) 05/11/21 13:45 Ethyl Alcohol mg/dL 69.0 mg/dl (0-3) H 05/11/21 11:47 COVID-19 Eval Order Covid19 at [facility] 05/11/21 12:33 SARS-CoV-2 (PCR) NEGATIVE (Negative) 05/11/21 12:33 Impressions Liver Ultrasound 05/12/21 07:28 US liver CLINICAL HISTORY: 55 years-old Male presenting with eval for pancreatitis/gallstone. TECHNIQUE: Real-time grayscale ultrasound imaging of the upper abdomen was performed for a focused evaluation at the site of clinical concern. COMPARISON: None. FINDINGS: Visualized portion of the pancreas shows no evidence of acute abnormalities. Liver is slightly prominent measuring 17 cm in size with diffuse increase in echogenicity and coarsening of echotexture of its parenchyma without evidence of focal lesions or intrahepatic biliary dilatation. Gallbladder is fluid-filled without intraluminal calculi to suggest gallstones. Possible small amount of biliary sludge is seen on its dependent portion. No evidence of pericholecystic edema. Gallbladder wall is nondilated. Common bile duct is nondilated measuring 4 mm in diameter. Partially visualized right kidney shows no evidence of hydronephrosis. IMPRESSION: 1. Hepatic steatosis. 2. No sonographic evidence of cholelithiasis or cholecystitis. Possible mild gallbladder sludge. Nondilated common bile duct. 3. Partially visualized pancreas without evidence of inflammatory changes. ACT 112: Negative or not required by law. Electronically signed by: La Franco DO 05/12/2021 9:23 AM Medications Administered Current Inpatient Medications Famotidine (Famotidine 40 Mg Tablet) 40 mg PO QAM [facility] Stop: 06/11/21 08:59 Last Admin: 05/12/21 08:29 Dose: 40 mg Documented by: Fluoxetine HCl (Fluoxetine Hcl 20 Mg Cap) 20 mg PO TID [facility] Stop: 06/10/21 14:55 Last Admin: 05/12/21 08:29 Dose: 20 mg Documented by: Gabapentin (Gabapentin 600 Mg Tab) 600 mg PO Q8H [facility] Stop: 05/13/21 06:01 Gabapentin (Gabapentin 600 Mg Tab) 600 mg PO Q12H [facility] Stop: 05/14/21 06:01 Gabapentin (Gabapentin 600 Mg Tab) 600 mg PO Q24H [facility] Stop: 05/15/21 06:01 Thiamine HCl 100 mg/ Syringe 10 mls @ 2 mls/min IV QAM [facility] Stop: 06/10/21 14:55 Last Admin: 05/12/21 09:49 Dose: 2 mls/min Documented by: Folic Acid 1 mg/ Syringe 10 mls @ 5 mls/min IV QAM [facility] Stop: 06/10/21 15:29 Last Admin: 05/12/21 09:49 Dose: 5 mls/min Documented by: Lorazepam (Ativan) 1 mg in 2 mls @ 2 mls/min IV UD PRN; Protocol PRN Reason: EtOH Withdrawl AWSS Score 6,7 Stop: 06/10/21 14:55 Last Admin: 05/12/21 08:28 Dose: 2 mls/min Documented by: Lorazepam (Ativan) 2 mg in 4 mls @ 4 mls/min IV UD PRN; Protocol PRN Reason: EtOH Withdrawl AWSS Score 8,9 Stop: 06/10/21 14:55 Lorazepam (Ativan) 3 mg in 6 mls @ 4 mls/min IV ONCE PRN; Protocol PRN Reason: EtOH Withdrawl AWSS Score >=10 Stop: 06/10/21 14:55 Last Admin: 05/12/21 04:46 Dose: 4 mls/min Documented by: Potassium Chloride/Sodium Chloride (Normal Saline W/20 Meq Kcl) 20 meq in 1,000 mls @ 150 mls/hr IV .Q6H40M [facility] Stop: 06/11/21 09:14 Last Admin: 05/12/21 09:49 Dose: 150 mls/hr Documented by: Losartan Potassium (Losartan Potassium 50 Mg Tab) 50 mg PO DAILY [facility] Stop: 06/11/21 08:59 Last Admin: 05/12/21 08:27 Dose: 50 mg Documented by: Miscellaneous (Remove Nicoderm Patch) 1 ea N/A DAILY@0859 [facility] Stop: 06/11/21 08:58 Last Admin: 05/12/21 08:27 Dose: Not Given Documented by: Nicotine (Nicotine 21 Mg/24 Hr Tdsy) 21 mg TD QAM [facility] Stop: 06/11/21 08:59 Last Admin: 05/12/21 08:29 Dose: 21 mg Documented by: Ondansetron HCl (Ondansetron Inj 2 Mg/Ml 2 Ml Vial) 4 mg IV Q6H PRN PRN Reason: Nausea Stop: 06/10/21 14:55 Resident Activity Tracking Resident Involvement: Resident Care Provided Care Provided: [facility] Medicine Addendum (Blank) Addendum May 12, 2021 13:12 I was present with the medical student during the service, interview and the physical exam. I independently interviewed the patient and performed the physical exam, reviewed the chart and verified the documentation and I agree with the assessment and plan of Dwaine Beard. Attending Physicain Medical Student Supervision Note: I independently interviewed and examined the patient and verified the wells history and physical, reviewed labs and image studies, discussed the case with the medical student Dwaine Beard and the Resident physician Dr Woods and agree with the findings and care plan. Discussed starting naltrexone on discharge once LFT improves. Patient interested in it. Should follow up with D and A counselling and close outpatient follow up.
[2021-05-12] MEDS ORDERED: LORazepam 1 MG/2 ML VIAL IV STA (22:58)
[2021-05-13] MEDS: LORazepam 3 MG/6 ML VIAL IV PRN ×3 (02:27→22:22)
[2021-05-13] MEDS: GABAPENTIN 600 MG TAB PO SCH ×3 (05:45→21:39)
--- NOTE | 2021-05-13 06:17 | Hospitalist Progress Note ---
Date of Service May 13, 2021 Assessment & Plan (1) Alcohol withdrawal: Plan: Gregorio Perez is a 55 y/o male with longstanding history of alcohol use disorder (with ~3 prior trials of rehab), depression, anxiety, HTN, and HTD who presented to the ED on 05/11 in alcohol withdrawal with hallucinosis, last drink occurring on 05/10 at 1900. He requires hospitalization for close hemodynamic and neurologic monitoring given his high risk for developing DTs. Alcohol Withdrawal: -Maintain seizure precautions, AWSS with IV ativan PRN -- still requiring significant amounts at present -Continue gabapentin taper (end 05/15) -- will repeat q8h dosing today given increased risk -Folic acid 1mg IV daily -Thiamine increased to 200mg IV b.i.d. -Patient at high-risk for DTs. Will consider foreign food cook specialty consult should hemodynamics and clinical status devolve. -Consider rehabilitation placement after acute issues resolve Alcohol-induced Pancreatitis - mild -Localized to midepigastric area with radiation to the back, LLQ in setting of transaminitis, hyperbilirubinemia, and elevated lipase -RUQ US - demonstrating hepatic steatosis without cholelithiasis, cholecystitis. or CBD dilation; mild GB sludge; no inflammation seen on partially visualized pancreas -Suspect secondary to alcohol-induced pancreatitis -Pain significantly improved. Lipase downtrending. Ca mildly low, but stable. Hct stable. -Advanced to regular diet without difficulty -LR @ 80cc/hr Transaminitis - Suspect secondary to known history of recent alcohol binge - Decreasing significantly on day-to-day labs Hypokalemia: -K this AM at 3.6 GERD -Continue home Pepsid HTN: -Withdrawal management as above -Will give labetalol 5mg IV x 1 - consider additional doses for SBP > 160, DBP > 90 -Continue losartan 50 mg PO daily HLD: -Hold statin with resolving alcoholic hepatitis Depression: -Continue Prozac 20mg po TID as dosed at home FEN/GI: Regular diet DVT PPx: SCDs Code: Full Dispo: PCU (2) GERD (gastroesophageal reflux disease): (3) Hypertension: (4) Hyperlipidemia: (5) Depression: Admission and Anticipated Discharge Date Admission Date: May 11, 2021 Supervising Physician Co-Signing Physician Notes Attending Attestation - Pt seen/examined, chart reviewed, care plan d/w resident Dr Zain Richmond. I agree w/ the wells components of his documentation. Dr Richmond and I saw the patient concurrently today. During that joint visit the patient told Dr Richmond that he wanted to f/u with him as an outpatient. He voiced that he trusted Dr Richmond. He also told us that he would pursue inpatient rehab. Requiring copious ativan for his withdrawal sx's. vitals: tachy, afebrile gen - tearful, anxious heart - tachy, s1 s2 lungs - CTA b/l abd - soft, NT, ND, BS+, liver edge palpable ext - no edema neuro -tremors lipase 800 LFTs improving A/P: 1. acute alcoholic pancreatitis - improving biochemically/clinically 2. acute alcoholic hepatitis - improving 3. alcohol dependence - with withdrawal; cont gabapentin protocol, ativan protocol, supportive care, etc; increase thiamine dosing; cont folate 4. anxiety/depression - fluoxetine TID 5. DVT proph - add lovenox. ask SW to set up post-d/c options for alcohol rehab, etc pt's mother updated at bedside Ludin Gilbert MD Subjective Anxious overnight and high-scoring on AWSS, did require total of ~6mg of Ativan overnight split into numerous doses. Patient seen at the bedside this morning. He reports that spirits are not great this morning. He reflects that alcohol has always been a center point in his life, and notes "I am not sure why I always do this The only thing alcohol overdose is cause problems." He reports that he feels almost somewhat conditions to drink on a daily basis, and may provide an outlet for otherwise negative moods. He said he has never spoken to a doctor outside of the hospital about this before. He reports that "I wish I could just live in rehab." He reports that he feels being treated equally there. He truly wants to change, just does not know how. He denies any further abdominal pain. Just finished eating a full meal, no nausea or vomiting. No chest pain, palpitations, shortness of breath. Review of Systems Review of Systems: As per HPI Physical Exam Physical Exam: General: Tired appearing 55-year-old male who is lying back in his hospital bed, relaxed, upon my arrival. He converses freely and is fully alert and oriented. He is intermittently tearful throughout her conversation wh ile providing reflections. HEENT: NCAT. Eyes - Sclera are white, anicteric, and without injection. PERRL. Mouth - MMM with no tonsillar edema or exudates. Cardiac: Tachycardic with regular rhythm; S1 and S2 present with no murmurs, rubs, or gallops. Pulmonary: Good respiratory effort with symmetric expansion of the chest. No use of accessory muscles. Lungs were clear to auscultation bilaterally with no crackles or wheezes. Abdominal: Normoactive bowel sounds. Abdomen was soft, nondistended, and non- tender to palpation. Extremities: Upper and lower extremities are warm and well perfused. No p eripheral edema. Results & Data Results & Data ([facility]) Vital Signs (Past 12 Hours) Vital Signs Temp Pulse Pulse Resp BP Pulse Ox 05/13/21 02:53 37.0 C 84 18 145/92 H 94 05/13/21 00:00 84 05/12/21 23:59 36.6 C 94 H 16 137/85 98 05/12/21 19:39 36.8 C 100 H 19 143/87 H 98 Resident Activity Tracking Resident Involvement: Resident Care Provided Care Provided: Adult Hospital Medicine (1) Alcohol withdrawal Complication of substance-induced condition: uncomplicated Qualified Code(s): F10.230 - Alcohol dependence with withdrawal, uncomplicated
[2021-05-13] MEDS: LORazepam 2 MG/4 ML VIAL IV PRN ×8 (06:20→23:34)
[2021-05-13 07:01] LABS: Albumin Globulin Ratio 0.9 (0.9-2); Albumin Level 2.7 gm/dl (3.4-5.0); BUN Creatinine Ratio 10.2 (10-20); Bilirubin,Total 1.8 mg/dl (0.2-1); Calcium 7.4 mg/dl (8.5-10.1); Creatinine Clr Calc Pharmacy 116.6 ml/min; Est GFR (African American) 126.1 ml/min; Est GFR (Non-African American) 108.8 ml/min; Potassium 3.6 mmol/L (3.5-5.1); Total Protein 5.7 gm/dl (6.4-8.2)
[2021-05-13] MEDS: NSS + 20MEQ KCL 20 MEQ/1,000 ML BAG IV SCH (07:36)
[2021-05-13] MEDS: NICOTINE 21 MG/24 HR TDSY TD SCH (07:57)
[2021-05-13] MEDS: FAMOTIDINE 40 MG TABLET PO SCH (07:57)
[2021-05-13] MEDS: FLUoxetine HCL 20 MG CAP PO SCH ×3 (07:57→19:55)
[2021-05-13] MEDS: LOSARTAN POTASSIUM 50 MG TAB PO SCH (07:58)
[2021-05-13] MEDS: FOLIC ACID 1 MG in SYRINGE 9.8 ML IV SCH (07:59)
[2021-05-13] MEDS: THIAMINE HCL 100 MG in SYRINGE 9 ML IV SCH (07:59)
[2021-05-13] MEDS ORDERED: LABETALOL HCL IV 5 MG/ML 20ML IV STA (10:59)
[2021-05-13] MEDS: LACTATED RINGER'S 1,000 ML IV SCH (11:56)
[2021-05-13] MEDS ORDERED: GABAPENTIN 600 MG TAB PO SCH (18:00)
[2021-05-13] MEDS ORDERED: LABETALOL HCL IV 5 MG/ML 20ML IV PRN (18:15)
[2021-05-13] MEDS ORDERED: LABETALOL HCL IV 5 MG/ML 20ML IV ONE (18:18)
[2021-05-13] MEDS ORDERED: THIAMINE HCL 200 MG in SYRINGE 9 ML IV SCH (21:00)
[2021-05-13] MEDS: THIAMINE HCL 200 MG in SODIUM CHLORIDE 0.9% 50 ML IV SCH (21:38)
--- NOTE | 2021-05-13 21:44 | Billing Data ---
Date of Service May 13, 2021 Coding Level of Care Code 20091 Subseq Hosp Care Lvl 2
[2021-05-14] MEDS ORDERED: LORazepam 1 MG TAB PO STA ×2 (00:01→21:49)
[2021-05-14] MEDS ORDERED: NICOTINE POLACRILEX 2 MG GUM MT PRN (00:11)
[2021-05-14] MEDS: LACTATED RINGER'S 1,000 ML IV SCH ×2 (00:37→14:22)
[2021-05-14] MEDS: LORazepam 2 MG/4 ML VIAL IV PRN ×3 (01:46→23:01)
[2021-05-14] MEDS: LORazepam 3 MG/6 ML VIAL IV PRN ×3 (03:54→19:59)
[2021-05-14] MEDS ORDERED: GABAPENTIN 600 MG TAB PO SCH (06:00)
[2021-05-14 07:24] LABS: Basophils # (auto) 0.03 K/uL (0-0.2); Basophils % (auto) 0.4 %; Eosinophils # (auto) 0.19 K/uL (0-0.5); Eosinophils % (auto) 2.5 %; Hematocrit (blood only) 40.3 % (42-52); Hemoglobin 13.6 g/dL (14.0-18.0); Immature Granulocytes # (auto) 0.02 K/uL (0.00-0.02); Immature Granulocytes % (auto) 0.3 %; Lymphocytes # (auto) 2.32 K/uL (1.2-3.4); Lymphocytes % (auto) 31.1 %; Mean Corpuscular Hemoglobin 34.1 pg (25-34); Mean Corpuscular Hgb Conc 33.7 g/dL (32-36); Mean Platelet Volume 8.3 fL (7.4-10.4); Monocytes # (auto) 0.65 K/uL (0.11-0.59); Monocytes % (auto) 8.7 %; Neutrophils # (auto) 4.26 K/uL (1.4-6.5); Platelet Count 187 K/uL (130-400); RDW Standard Deviation 51.6 fL (36.4-46.3); Red Blood Count 3.99 M/uL (4.7-6.1); White Blood Count 7.47 K/uL (4.8-10.8)
[2021-05-14] MEDS: THIAMINE HCL 200 MG in SODIUM CHLORIDE 0.9% 50 ML IV SCH ×2 (07:33→20:42)
[2021-05-14] MEDS: NICOTINE 21 MG/24 HR TDSY TD SCH (07:33)
[2021-05-14] MEDS: LOSARTAN POTASSIUM 50 MG TAB PO SCH (07:34)
[2021-05-14] MEDS: FLUoxetine HCL 20 MG CAP PO SCH ×3 (07:34→20:04)
[2021-05-14] MEDS: GABAPENTIN 600 MG TAB PO SCH ×2 (07:34→17:15)
[2021-05-14] MEDS: FAMOTIDINE 40 MG TABLET PO SCH (07:34)
[2021-05-14] MEDS: FOLIC ACID 1 MG in SYRINGE 9.8 ML IV SCH (07:34)
[2021-05-14 08:05] LABS: Albumin Level 2.9 gm/dl (3.4-5.0); BUN Creatinine Ratio 9.7 (10-20); Calcium 8.7 mg/dl (8.5-10.1); Creatinine Clr Calc Pharmacy 120.6 ml/min; Est GFR (African American) 127.7 ml/min; Est GFR (Non-African American) 110.2 ml/min; Potassium 3.7 mmol/L (3.5-5.1)
[2021-05-14 08:07] LABS: Albumin Globulin Ratio 0.9 (0.9-2); Bilirubin,Total 1.2 mg/dl (0.2-1); Globulin 3.2 gm/dl (2.5-4.0); Total Protein 6.1 gm/dl (6.4-8.2)
[2021-05-14] MEDS: LORazepam 1 MG/2 ML VIAL IV PRN ×4 (08:43→21:13)
[2021-05-14] MEDS ORDERED: THIAMINE HCL 200 MG in SYRINGE 9 ML IV SCH (09:00)
--- NOTE | 2021-05-14 09:16 | Hospitalist Progress Note ---
Date of Service May 14, 2021 Assessment & Plan (1) Alcohol withdrawal: Plan: Gregorio Perez is a 55 y/o male with longstanding history of alcohol use disorder (with ~3 prior trials of rehab), depression, anxiety, HTN, and HTD who presented to the ED on 05/11 in alcohol withdrawal with hallucinosis, last drink occurring on 05/10 at 1900. He requires hospitalization for close hemodynamic and neurologic monitoring given his high risk for developing DTs. Alcohol Withdrawal -Maintain seizure precautions, AWSS with IV ativan PRN -- still requiring significant amounts at present -Continue gabapentin taper (end 05/16) -Folic acid 1mg IV daily -continue Thiamine 200mg IV BID -Patient at high-risk for DTs. Will consider financial advocate consult should hemodynamics and clinical status deteriorate -Consider drug rehab placement after acute issues resolve - at this point patient continues to agree to inpatient drug rehab Alcohol-induced Pancreatitis, resolving -Localized to midepigastric area with radiation to the back, LLQ in setting of transaminitis, hyperbilirubinemia, and elevated lipase -RUQ US - demonstrating hepatic steatosis without cholelithiasis, cholecystitis. or CBD dilation; mild GB sludge; no inflammation seen on partially visualized pancreas -Suspect secondary to alcohol-induced pancreatitis -Pain significantly improved. Lipase downtrending. No abdominal/back pain today. -Continue regular diet -LR @ 80cc/hr Transaminitis, resolving - Suspect secondary to above - continue to trend GERD -Continue home Pepcid HTN -Withdrawal management as above -Labetalol 10mg IV Q4H PRN for SBP > 170, DBP > 105 -Continue losartan 50 mg PO daily HLD -Hold statin for now, plan to re-start once LFTs normalized Depression -Continue Prozac 20mg po TID as dosed at home FEN/GI: Regular diet DVT PPx: SCDs Code: Full code Dispo: PCU w/ tele, consulted CM to assist with inpatient alcohol rehab (2) GERD (gastroesophageal reflux disease): (3) Hypertension: (4) Hyperlipidemia: (5) Depression: Admission and Anticipated Discharge Date Admission Date: May 11, 2021 Supervising Physician Co-Signing Physician Notes Attending Attestation - Pt seen/examined, chart reviewed, care plan d/w resident Dr Jaron Woods. I agree w/ the wells components of his documentation. Pt stating he "feels better" today. No abd pain. Tolerating diet. Still requiring copious ativan for withdrawal symptoms. Staff report some mild confusion this afternoon. When I asked the patient if he still wanted to go to inpatient rehab following his stay he said "I'm not doing anything until I talk with the man." When I asked who he was referring to it seemed like he was talking about "Dr Richmond." vitals: tachy, afebrile gen - anxious, seems slightly confused heart - tachy, s1 s2 lungs - CTA b/l abd - soft, NT, ND, BS+, liver edge palpable ext - no edema neuro -tremors present lipase 600 LFTs improving Na 136 A/P: 1. acute alcoholic pancreatitis - improving biochemically/clinically 2. acute alcoholic hepatitis - improving 3. alcohol dependence with withdrawal; cont gabapentin protocol, ativan protocol, supportive care, etc; thiamine, folate seems more confused today; at high risk of DTs 4. anxiety/depression - fluoxetine TID 5. DVT proph - lovenox. labs in am Ludin Gilbert MD Subjective Patient is receiving Ativan 1-2mg IV Q2-3 hours and several doses of 3mg IV, per AWSS protocol. Reports that anxiety level is improved from yesterday. Also reports improvement in tremors. Still admits to hearing mother's voice when he "listens for it", and still has mild diaphoresis. Feels restless like he wants to "get up and throw out the trash". Denies fever/chills, chest pain, palpitations, SOB, syncope/near-syncope, N/V, abdominal pain. Review of Systems Review of Systems: All systems reviewed & are unremarkable except as noted in Subjective Physical Exam Physical Exam: General: A&Ox3. NAD. Cooperative. HEENT: Atraumatic, normocephalic. Pulm: CTAB A&P. -wheezes, -rales, -rhonchi. Symmetrical chest rise. No increase work of breathing. No respiratory distress. Cardiac: RRR, -mrg. Radial pulses intact and symmetrical. No LE edema. Abdominal: soft, non-tender, non-distended, BS x 4 Neuro: bilateral arm tremor was with initiation of movement Skin: warm, dry, no rash Results & Data Results & Data ([facility]) Vital Signs (Past 12 Hours) Vital Signs Temp Pulse Pulse Resp BP BP Pulse Ox 05/14/21 08:00 66 05/14/21 07:24 36.4 C L 80 17 151/107 H 97 05/14/21 03:47 36.6 C 81 16 121/79 99 05/13/21 23:35 36.7 C 104 H 83 18 144/88 H 95 Laboratory Results Laboratory Results - last 24 hr 05/14/21 05/14/21 06:59 06:59 WBC 7.47 RBC 3.99 L Hgb 13.6 L Hct 40.3 L MCV 101.0 H MCH 34.1 H MCHC 33.7 RDW Std Deviation 51.6 H RDW Coeff of Thelma 14.0 Plt Count 187 MPV 8.3 Immature Gran % (Auto) 0.3 Neut % (Auto) 57.0 Lymph % (Auto) 31.1 [place] % (Auto) 8.7 Eos % (Auto) 2.5 Baso % (Auto) 0.4 Neut # (Auto) 4.26 Lymph # (Auto) 2.32 [place] # (Auto) 0.65 H Eos # (Auto) 0.19 Baso # (Auto) 0.03 Immature Gran # (Auto) 0.02 Sodium 136 Potassium 3.7 Chloride 104 Carbon Dioxide 28 Anion Gap 5.0 BUN 6 L Creatinine 0.63 Est Cr Clr Drug Dosing 120.6 Est GFR ( Amer) 127.7 Est GFR (Non-Af Amer) 110.2 BUN/Creatinine Ratio 9.7 L Glucose 114 H Calcium 8.7 D Total Bilirubin 1.2 H AST 108 H ALT 249 H Alkaline Phosphatase 90 Total Protein 6.1 L Albumin 2.9 L Globulin 3.2 Albumin/Globulin Ratio 0.9 Lipase 601 H Resident Activity Tracking Resident Involvement: Resident Care Provided Care Provided: Adult Hospital Medicine (1) Alcohol withdrawal Complication of substance-induced condition: uncomplicated Qualified Code(s): F10.230 - Alcohol dependence with withdrawal, uncomplicated
[2021-05-14] MEDS ORDERED: ENOXAPARIN INJ 40 MG/0.4 ML SYR SQ ONE (18:56)
[2021-05-14] MEDS ORDERED: MELATONIN 3 MG TAB PO PRN (21:07)
--- NOTE | 2021-05-14 21:20 | Billing Data ---
Date of Service May 14, 2021 Coding Level of Care Code 35785 Subseq Hosp Care Lvl 2
[2021-05-14] MEDS ORDERED: STAT IV Infusion **Titration per Protocol STA (21:55)
[2021-05-14] MEDS ORDERED: DEXMEDETOMIDINE HCL 200 MCG in SODIUM CHLORIDE 0.9% 48 ML IV SCH (22:00)
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
[2021-05-15] MEDS: LORazepam 2 MG/4 ML VIAL IV PRN ×4 (00:26→22:25)
[2021-05-15] MEDS: DEXMEDETOMIDINE HCL 400 MCG in 0.9 % SODIUM CHLORIDE 96 ML IV SCH ×4 (00:28→22:27)
[2021-05-15] MEDS: LACTATED RINGER'S 1,000 ML IV SCH (02:41)
[2021-05-15 05:06] LABS: Basophils # (auto) 0.01 K/uL (0-0.2); Basophils % (auto) 0.1 %; Eosinophils # (auto) 0.12 K/uL (0-0.5); Eosinophils % (auto) 1.4 %; Hematocrit (blood only) 37.5 % (42-52); Hemoglobin 12.8 g/dL (14.0-18.0); Immature Granulocytes # (auto) 0.03 K/uL (0.00-0.02); Immature Granulocytes % (auto) 0.3 %; Lymphocytes # (auto) 2.21 K/uL (1.2-3.4); Lymphocytes % (auto) 24.9 %; Mean Corpuscular Hgb Conc 34.1 g/dL (32-36); Mean Corpuscular Volume 99.5 fL (80-100); Mean Platelet Volume 8.4 fL (7.4-10.4); Monocytes # (auto) 0.59 K/uL (0.11-0.59); Monocytes % (auto) 6.7 %; Neutrophils % (auto) 66.6 %; Platelet Count 167 K/uL (130-400); RDW Coefficient of Variation 14.2 % (11.5-14.5); Red Blood Count 3.77 M/uL (4.7-6.1); White Blood Count 8.86 K/uL (4.8-10.8)
[2021-05-15] MEDS: GABAPENTIN 600 MG TAB PO SCH ×3 (05:24→17:57)
[2021-05-15 05:25] LABS: BUN Creatinine Ratio 10.6 (10-20); Calcium 8.2 mg/dl (8.5-10.1); Creatinine Clr Calc Pharmacy 113.4 ml/min; Est GFR (African American) 124.5 ml/min; Est GFR (Non-African American) 107.4 ml/min; Potassium 3.7 mmol/L (3.5-5.1)
[2021-05-15 05:28] LABS: Albumin Globulin Ratio 0.9 (0.9-2); Globulin 3.3 gm/dl (2.5-4.0); Phosphorus 3.5 mg/dl (2.5-4.9); Total Protein 6.3 gm/dl (6.4-8.2)
[2021-05-15] MEDS ORDERED: GABAPENTIN 600 MG TAB PO SCH (06:00)
[2021-05-15] MEDS: POTASSIUM CHLORIDE / WTR 10 MEQ/100 ML PLCT IV SCH ×2 (06:21→10:29)
--- NOTE | 2021-05-15 06:52 | Hospitalist Progress Note ---
Date of Service May 15, 2021 Assessment & Plan (1) Alcohol withdrawal: Plan: Gregorio Perez is a 55 y/o male with longstanding history of alcohol use disorder (with ~3 prior trials of rehab), depression, anxiety, HTN, and HTD who presented to the ED on 05/11 in alcohol withdrawal with hallucinosis, last drink occurring on 05/10 at 1900. He requires hospitalization for close hemodynamic and neurologic monitoring given his high risk for developing DTs. Alcohol Withdrawal -Maintain seizure precautions, AWSS with IV ativan PRN -- still requiring significant amounts at present -Continue gabapentin taper (end 05/16) -Folic acid 1mg IV daily -continue Thiamine 200mg IV BID -Patient at high-risk for DTs. Will consider mid level net developer consult should hemodynamics and clinical status deteriorate -Consider drug rehab placement after acute issues resolve - at this point patient continues to agree to inpatient drug rehab Alcohol-induced Pancreatitis, resolving -Localized to midepigastric area with radiation to the back, LLQ in setting of transaminitis, hyperbilirubinemia, and elevated lipase -RUQ US - demonstrating hepatic steatosis without cholelithiasis, cholecystitis. or CBD dilation; mild GB sludge; no inflammation seen on partially visualized pancreas -Suspect secondary to alcohol-induced pancreatitis -Pain significantly improved. Lipase downtrending. No abdominal/back pain today. -Continue regular diet -LR @ 80cc/hr Transaminitis, resolving - Suspect secondary to above - continue to trend GERD -Continue home Pepcid HTN -Withdrawal management as above -Labetalol 10mg IV Q4H PRN for SBP > 170, DBP > 105 -Continue losartan 50 mg PO daily HLD -Hold statin for now, plan to re-start once LFTs normalized Depression -Continue Prozac 20mg po TID as dosed at home FEN/GI: Regular diet DVT PPx: SCDs Code: Full code Dispo: PCU w/ tele, consulted CM to assist with inpatient alcohol rehab (2) GERD (gastroesophageal reflux disease): (3) Hypertension: (4) Hyperlipidemia: (5) Depression: Admission and Anticipated Discharge Date Admission Date: May 11, 2021 Results & Data Results & Data ([facility]) Vital Signs (Past 12 Hours) Vital Signs Temp Pulse Pulse Resp BP BP Pulse Ox 05/15/21 05:54 36.7 C 05/15/21 04:05 62 19 170/102 H 97 05/15/21 03:05 65 23 136/105 H 91 05/15/21 02:05 66 21 163/96 H 91 05/15/21 01:05 70 22 149/92 H 88 L 05/15/21 00:05 97 H 19 132/98 98 05/15/21 00:00 94 H 05/14/21 23:07 126 H 26 H 98 05/14/21 22:25 36.7 C 05/14/21 22:01 109 H 18 05/14/21 21:30 120 H 18 05/14/21 21:00 100 H 16 05/14/21 19:25 36.6 C 96 H 20 150/115 H 97 (1) Alcohol withdrawal Complication of substance-induced condition: uncomplicated Qualified Code(s): F10.230 - Alcohol dependence with withdrawal, uncomplicated
[2021-05-15] MEDS: ONDANSETRON INJ 2 MG/ML 2 ML VIAL IV PRN (08:34)
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
[2021-05-15] MEDS: LORazepam 3 MG/6 ML VIAL IV SCH ×3 (10:27→21:20)
[2021-05-15] MEDS: FOLIC ACID 1 MG in SYRINGE 9.8 ML IV SCH (10:30)
[2021-05-15] MEDS: NICOTINE 21 MG/24 HR TDSY TD SCH (10:34)
[2021-05-15] MEDS: FAMOTIDINE 40 MG TABLET PO SCH (10:37)
[2021-05-15] MEDS: FLUoxetine HCL 20 MG CAP PO SCH ×3 (10:37→20:55)
[2021-05-15] MEDS: LOSARTAN POTASSIUM 50 MG TAB PO SCH (10:38)
--- NOTE | 2021-05-15 10:44 | Critical Care Progress Note ---
Date of Service May 15, 2021 Assessment & Plan (1) Alcohol withdrawal: Plan: Reason Critically Ill: 55-year-old male undergoing treatment for alcohol withdrawal presents to the ICU following worsening delirium tremens with increased Ativan requirements and now requiring Precedex drip. Neuro - Delirium tremens patient undergoing therapy with gabapentin taper and GINI S protocol with IV Ativan. Now requiring additional Precedex drip and transferred to ICU -No history of seizures with withdrawal but will maintain seizure precautions -Continue thiamine, folic acid -Continuous monitoring in ICU while requiring Precedex drip -Will plan to intubate if there is worsening or for symptoms and/or respiratory compromise Anxiety and depressioncontinue Prozac Cardiac - HTNcontinue Cozaar HLDholding statin until LFTs normalize Respiratory - No history of pulmonary disease. Currently maintaining oxygen saturations on room air without respiratory distress. Lungs clear to auscultation Continuous monitoring on pulse ox GI - Hepatic steatosisvisualized on liver ultrasound. Gallbladder is fluid-filled with evidence of gallstones but no evidence of pericholecystitis edema and nondilated. -LFTs trending down, continue to monitor --Elevated lipase No epigastric tenderness Could be from alcohol use Continue to monitor GERDfamotidine RENAL/LYTES - Creatinine within normal limits. Monitor routine BMPs replete electrolytes as indicated - Strict I's and O's ENDO - No history of diabetes or thyroid disease ICU hyperglycemic protocol HEME - H&H stable, monitor routine CBCs ID - No indication for infectious process at this --Prophylaxis VTE: Lovenox GI: Pepcid Lines: Peripheral Diet: Regular Plan: In/out: +602, urine output 2977, patient is 4.1 L positive since coming to the hospital DC IV fluids. See the patient is able to tolerate p.o. If not then I will put him on some IV D5 half NS. Start the patient on [id number] Ativan 3 mg every 6 hours Increase the dose to keep the patient RASS -1 Continue with Precedex. Titrate down Precedex as much as possible. Patient has bradycardic episodes likely from the Precedex. Continue with folic acid and thiamine. I have personally spent 35 minutes of critical care time in the direct management of this patient. This is a life/limb threatening event. This includes time spent evaluating patient, direct bedside care, chart review, placing orders, interpretation of diagnostic studies, discussion with consultants, patie nt, and family members, as well as other required patient management activities. This time is exclusive of all separately billable procedures, and teaching time and separate from and in addition to any other critical care service time. Thank you for allowing us to participate in the care of this patient. Please refer to my attending physician's documentation for any further recommendations. (2) Alcohol abuse: (3) GERD (gastroesophageal reflux disease): (4) Hypertension: (5) Hyperlipidemia: (6) Depression: (7) Anxiety: (8) Delirium tremens: Admission and Anticipated Discharge Date Admission Date: May 11, 2021 Subjective Patient seen and examined at bedside. No acute distress. Patient was at bedside 8.7 at time of examination He was answering simple questions. Denied any chest pain, no shortness of breath. Was actively hallucinating. Stating that he is in the ER and there are people in the kitchen right now. Total of 4 mg of Ativan since coming to the ICU overnight. Review of Systems Review of Systems: All systems reviewed & are unremarkable except as noted in Subjective Physical Exam Physical Exam: Constitutional: No acute distress HEENT: EOMI, PERRLA Respiratory system: Decreased air entry bilaterally, no wheeze, no rhonchi, no crackles CVS: S1-S2 positive, no murmurs or gallops Abdomen: Soft, nontender, nondistended, positive bowel sounds x4 Extremities: +2 pulses bilaterally radialis/ dorsalis pedis, no cyanosis, no edema Neuro: Somnolent, RASS -1, responds to simple questions, moving all extremities Psych: Unable to assess G/U: No Quintero Skin: no rashes, warm and dry Lymphatic: no cervical or axillary lymphadenopathy Results & Data Results & Data ([facility]) Vital Signs (Past 12 Hours) Vital Signs Temp Pulse Resp BP Pulse Ox 05/15/21 05:54 36.7 C 05/15/21 04:05 62 19 170/102 H 97 05/15/21 03:05 65 23 136/105 H 91 05/15/21 02:05 66 21 163/96 H 91 05/15/21 01:05 70 22 149/92 H 88 L 05/15/21 00:05 97 H 19 132/98 98 05/15/21 00:00 94 H 05/14/21 23:07 126 H 26 H 98 05/15/21 04:41 05/15/21 04:41 Coding Level of Care Code Critical Care 1st 30-74 mins Diagnoses Alcohol withdrawal F10.230 Complication of substance-induced condition: uncomplicated Alcohol abuse F10.10 GERD (gastroesophageal reflux disease) K21.9 Hypertension I10 Hyperlipidemia E78.5 Depression F32.9 Anxiety F41.9 Delirium tremens F10.231 Time Spent (min) 35 (1) Alcohol withdrawal Complication of substance-induced condition: uncomplicated Qualified Code(s): F10.230 - Alcohol dependence with withdrawal, uncomplicated
[2021-05-15] MEDS: THIAMINE HCL 200 MG in SODIUM CHLORIDE 0.9% 50 ML IV SCH ×2 (10:50→20:59)
[2021-05-15] MEDS ORDERED: LORazepam 3 MG/6 ML VIAL IV SCH (12:00)
--- NOTE | 2021-05-15 17:56 | Billing Data ---
Date of Service May 15, 2021 Coding Level of Care Code 54210 Subseq Hosp Care Lvl 2
[2021-05-15] MEDS: ENOXAPARIN INJ 40 MG/0.4 ML SYR SQ SCH (20:54)
[2021-05-15] MEDS ORDERED: ENOXAPARIN INJ 40 MG/0.4 ML SYR SQ SCH (21:00)
[2021-05-16] MEDS: LORazepam 3 MG/6 ML VIAL IV SCH ×4 (05:13→20:19)
[2021-05-16 05:32] LABS: Basophils # (auto) 0.02 K/uL (0-0.2); Basophils % (auto) 0.2 %; Eosinophils # (auto) 0.16 K/uL (0-0.5); Eosinophils % (auto) 1.9 %; Hematocrit (blood only) 40.1 % (42-52); Hemoglobin 13.6 g/dL (14.0-18.0); Immature Granulocytes # (auto) 0.04 K/uL (0.00-0.02); Immature Granulocytes % (auto) 0.5 %; Lymphocytes # (auto) 1.96 K/uL (1.2-3.4); Lymphocytes % (auto) 22.9 %; Mean Corpuscular Hemoglobin 34.7 pg (25-34); Mean Corpuscular Hgb Conc 33.9 g/dL (32-36); Mean Corpuscular Volume 102.3 fL (80-100); Mean Platelet Volume 8.6 fL (7.4-10.4); Monocytes # (auto) 0.91 K/uL (0.11-0.59); Monocytes % (auto) 10.6 %; Neutrophils # (auto) 5.48 K/uL (1.4-6.5); Neutrophils % (auto) 63.9 %; Platelet Count 175 K/uL (130-400); RDW Coefficient of Variation 14.1 % (11.5-14.5); RDW Standard Deviation 52.2 fL (36.4-46.3); Red Blood Count 3.92 M/uL (4.7-6.1); White Blood Count 8.57 K/uL (4.8-10.8)
[2021-05-16 05:57] LABS: BUN Creatinine Ratio 12.1 (10-20); Calcium 8.7 mg/dl (8.5-10.1); Creatinine Clr Calc Pharmacy 94.8 ml/min; Est GFR (African American) 115.7 ml/min; Est GFR (Non-African American) 99.9 ml/min; Magnesium 2.2 mg/dl (1.8-2.4); Phosphorus 3.8 mg/dl (2.5-4.9); Potassium 3.6 mmol/L (3.5-5.1)
[2021-05-16] MEDS ORDERED: GABAPENTIN 600 MG TAB PO SCH (06:00)
[2021-05-16] MEDS: DEXMEDETOMIDINE HCL 400 MCG in 0.9 % SODIUM CHLORIDE 96 ML IV SCH ×4 (06:12→21:05)
[2021-05-16] MEDS: POTASSIUM CHLORIDE / WTR 10 MEQ/100 ML PLCT IV SCH ×3 (06:19→08:14)
[2021-05-16] MEDS: FOLIC ACID 1 MG in SYRINGE 9.8 ML IV SCH (08:12)
[2021-05-16] MEDS: THIAMINE HCL 200 MG in SODIUM CHLORIDE 0.9% 50 ML IV SCH ×2 (08:13→20:06)
[2021-05-16] MEDS: NICOTINE 21 MG/24 HR TDSY TD SCH (08:13)
[2021-05-16] MEDS: FLUoxetine HCL 20 MG CAP PO SCH ×3 (08:13→20:05)
[2021-05-16] MEDS: FAMOTIDINE 40 MG TABLET PO SCH (08:13)
[2021-05-16] MEDS: LOSARTAN POTASSIUM 50 MG TAB PO SCH (08:13)
--- NOTE | 2021-05-16 09:37 | Hospitalist Progress Note ---
Date of Service May 16, 2021 Assessment & Plan (1) Alcohol withdrawal: Plan: Gregorio Perez is a 55 y/o male with longstanding history of alcohol use disorder (with ~3 prior trials of rehab), depression, anxiety, HTN, and HTD who presented to the ED on 05/11 in alcohol withdrawal with hallucinosis, last drink occurring on 05/10 at 1900. He requires hospitalization for close hemodynamic and neurologic monitoring given his high risk for developing DTs. Alcohol Withdrawal -Maintain seizure precautions, AWSS with IV ativan PRN -- still requiring significant amounts at present -Continue gabapentin taper (end 05/16) -Folic acid 1mg IV daily -continue Thiamine 200mg IV BID -Patient at high-risk for DTs. Will consider parole supervisor consult should hemodynamics and clinical status deteriorate -Consider drug rehab placement after acute issues resolve - at this point patient continues to agree to inpatient drug rehab Alcohol-induced Pancreatitis, resolving -Localized to midepigastric area with radiation to the back, LLQ in setting of transaminitis, hyperbilirubinemia, and elevated lipase -RUQ US - demonstrating hepatic steatosis without cholelithiasis, cholecystitis. or CBD dilation; mild GB sludge; no inflammation seen on partially visualized pancreas -Suspect secondary to alcohol-induced pancreatitis -Pain significantly improved. Lipase downtrending. No abdominal/back pain today. -Continue regular diet -LR @ 80cc/hr Transaminitis, resolving - Suspect secondary to above - continue to trend GERD -Continue home Pepcid HTN -Withdrawal management as above -Labetalol 10mg IV Q4H PRN for SBP > 170, DBP > 105 -Continue losartan 50 mg PO daily HLD -Hold statin for now, plan to re-start once LFTs normalized Depression -Continue Prozac 20mg po TID as dosed at home FEN/GI: Regular diet DVT PPx: SCDs Code: Full code Dispo: PCU w/ tele, consulted CM to assist with inpatient alcohol rehab (2) GERD (gastroesophageal reflux disease): (3) Hypertension: (4) Hyperlipidemia: (5) Depression: Admission and Anticipated Discharge Date Admission Date: May 11, 2021 Subjective Patient received total of Ativan 9mg overnight - getting scheduled Ativan 3mg IV Q6H as well as Precedex gtt. Patient is completely alert and oriented this morning and also appears less anxious/agitated. Denies fever/chills, chest pain, palpitations, SOB, cough, N/V, abdominal pain, rash. Review of Systems Review of Systems: All systems reviewed & are unremarkable except as noted in Subjective Results & Data Results & Data ([facility]) Vital Signs (Past 12 Hours) Vital Signs Temp Pulse Resp BP Pulse Ox 05/16/21 08:00 73 05/16/21 07:21 36.7 C 71 21 123/91 94 05/16/21 06:21 36.7 C 70 27 H 137/96 95 05/16/21 05:21 66 20 130/87 92 05/16/21 04:21 62 18 121/85 92 05/16/21 03:22 61 19 99/70 L 93 05/16/21 02:23 36.8 C 05/16/21 02:10 61 18 135/95 94 05/16/21 01:21 60 18 153/99 H 94 05/16/21 00:22 56 L 20 142/100 H 93 05/15/21 23:22 58 L 21 155/96 H 91 05/15/21 23:02 60 05/15/21 22:22 62 15 156/85 H 95 (1) Alcohol withdrawal Complication of substance-induced condition: uncomplicated Qualified Code(s): F10.230 - Alcohol dependence with withdrawal, uncomplicated
--- NOTE | 2021-05-16 10:02 | Medical Student Progress Note ---
Date of Service May 16, 2021 Assessment & Plan (1) Alcohol withdrawal: Plan: Gregorio Perez is a 55 y/o male with longstanding history of alcohol use disorder (with ~3 prior trials of rehab), depression, anxiety, HTN, and HTD who presented to the ED on 05/11 in alcohol withdrawal with hallucinosis, last drink occurring on 05/10 at 1900. He was transferred to the ICU on 05/14 for close hemodynamic and neurologic monitoring for Delirium Tremens. Alcohol Withdrawal, Delirium Tremens -Maintain seizure precautions, AWSS with IV ativan PRN -- still requiring significant amounts at present -Gabapentin taper ends 05/16 -Folic acid 1mg IV daily -continue Thiamine 200mg IV BID -Continue Dexmedetomidine -Based on ICU recommendations, will downgrade to PCU status when medically cleared; intubation considered if worsening clinical status -Consider rehab placement after acute issues resolve - at this point patient continues to agree to inpatient rehab Alcohol-induced Pancreatitis, resolving -Localized to midepigastric area with radiation to the back, LLQ in setting of transaminitis, hyperbilirubinemia, and elevated lipase -RUQ US: demonstrating hepatic steatosis without cholelithiasis, cholecystitis. or CBD dilation; mild GB sludge; no inflammation seen on partially visualized pancreas -Suspect secondary to alcohol-induced pancreatitis -Pain significantly improved. Lipase downtrending. No abdominal/back pain today. -Continue regular diet -LR @ 80cc/hr Transaminitis, resolving - Suspect secondary to above - LFTs downtrendng GERD -Continue home Pepcid HTN -Withdrawal management as above -Labetalol 10mg IV Q4H PRN for SBP > 170, DBP > 105 -Continue losartan 50 mg PO daily HLD -Hold statin for now, plan to re-start once LFTs normalized Depression -Continue Prozac 20mg po TID as dosed at home FEN/GI: Regular diet DVT PPx: SCDs Code: Full code Dispo: ICU, consulted CM to assist with inpatient alcohol rehab Complication of substance-induced condition: uncomplicated Qualified Code(s): F10.230 - Alcohol dependence with withdrawal, uncomplicated (2) GERD (gastroesophageal reflux disease): (3) Hypertension: (4) Hyperlipidemia: (5) Depression: Admission and Anticipated Discharge Date Admission Date: May 11, 2021 Supervising Attestation I personally examined the patient and verified all wells points of history and exam, discussed case, and agree with decision making with Richa Kisha MS4. Feeling much better overall, is aware that he is in the hospital, aware that he is here related to alcohol. No abdominal pain. Overall improving, ICU weaning down Precedex vitals noted, calm appearing nad. Much more oriented and coherent. heent nc at mmm breathing unlabored no accessory muscles good effort no focal neuro deficits EtOH pancreatitis - improved, clinically essentially resolved EtOH abuse/withdrawal -showing improvement overall, mentally much more rational and calm as well, continue to wean Precedex. Started to discuss management of anxiety and alcohol abuse. Otherwise as above Subjective Overall, patient is doing much better today. No acute concerns. Most recent AWSS score of 6. Still receiving Lorazepam 2-3 mg IV frequently. Notable overnight incidents include a couple of attempts to get out of bed and a phone call to 911 after requesting a telephone. Review of Systems Review of Systems: All systems reviewed & are unremarkable except as noted in Subjective Physical Exam Physical Exam: General: A&Ox4. NAD. HEENT: Atraumatic, normocephalic. Pulm: CTAB A&P. -wheezes, -rales, -rhonchi. Symmetrical chest rise. No increase work of breathing. No respiratory distress. Cardiac: RRR, -mrg. Radial pulses intact and symmetrical. No LE edema. Neuro: bilateral arm tremor was with initiation of movement Skin: warm, dry, no rash Constitutional: average body habitus; not in distress Eyes: PERRL, conjunctivae normal, anicteric sclerae + anicteric sclerae ENMT: external ear and nose normal, oropharynx normal Neck: trachea midline, no thyromegaly Respiratory: normal respiratory effort, lungs clear to auscultation Cardiovascular: Rate/Rhythm: regular rate, regular rhythm and + tachycardic Heart Sounds: normal S1 and normal S2 Vessels: no JVD Extremities: normal capillary refill; no edema Gastrointestinal (Abdomen): normal bowel sounds, soft, nontender, no hepatosplenomegaly Musculoskeletal: no cyanosis or clubbing, extremities motor strength 5/5 Skin: no rashes, warm and dry Results & Data ([facility]) Vital Signs (Past 12 Hours) Vital Signs Temp Pulse Resp BP Pulse Ox 05/16/21 08:00 73 05/16/21 07:21 36.7 C 71 21 123/91 94 05/16/21 06:21 36.7 C 70 27 H 137/96 95 05/16/21 05:21 66 20 130/87 92 05/16/21 04:21 62 18 121/85 92 05/16/21 03:22 61 19 99/70 L 93 05/16/21 02:23 36.8 C 05/16/21 02:10 61 18 135/95 94 05/16/21 01:21 60 18 153/99 H 94 05/16/21 00:22 56 L 20 142/100 H 93 05/15/21 23:22 58 L 21 155/96 H 91 05/15/21 23:02 60 05/15/21 22:22 62 15 156/85 H 95 Laboratory Results Laboratory Results WBC 8.57 K/uL (4.8-10.8) 05/16/21 05:09 RBC 3.92 M/uL (4.7-6.1) L 05/16/21 05:09 Hgb 13.6 g/dL (14.0-18.0) L 05/16/21 05:09 Hct 40.1 % (42-52) L 05/16/21 05:09 MCV 102.3 fL (80-100) H 05/16/21 05:09 MCH 34.7 pg (25-34) H 05/16/21 05:09 MCHC 33.9 g/dL (32-36) 05/16/21 05:09 RDW Std Deviation 52.2 fL (36.4-46.3) H 05/16/21 05:09 RDW Coeff of Thelma 14.1 % (11.5-14.5) 05/16/21 05:09 Plt Count 175 K/uL (130-400) 05/16/21 05:09 MPV 8.6 fL (7.4-10.4) 05/16/21 05:09 Immature Gran % (Auto) 0.5 % 05/16/21 05:09 Neut % (Auto) 63.9 % 05/16/21 05:09 Lymph % (Auto) 22.9 % 05/16/21 05:09 [place] % (Auto) 10.6 % 05/16/21 05:09 Eos % (Auto) 1.9 % 05/16/21 05:09 Baso % (Auto) 0.2 % 05/16/21 05:09 Neut # (Auto) 5.48 K/uL (1.4-6.5) 05/16/21 05:09 Lymph # (Auto) 1.96 K/uL (1.2-3.4) 05/16/21 05:09 [place] # (Auto) 0.91 K/uL (0.11-0.59) H 05/16/21 05:09 Eos # (Auto) 0.16 K/uL (0-0.5) 05/16/21 05:09 Baso # (Auto) 0.02 K/uL (0-0.2) 05/16/21 05:09 Immature Gran # (Auto) 0.04 K/uL (0.00-0.02) H 05/16/21 05:09 PT 11.8 Seconds (9.0-12.0) 05/12/21 04:28 INR 1.2 (0.9-1.1) H 05/12/21 04:28 APTT 24.5 Seconds (21.0-31.0) 05/11/21 11:19 PTT Ratio 0.9 05/11/21 11:19 Sodium 136 mmol/L (136-145) 05/16/21 05:09 Potassium 3.6 mmol/L (3.5-5.1) 05/16/21 05:09 Chloride 103 mmol/L (98-107) 05/16/21 05:09 Carbon Dioxide 27 mmol/L (21-32) 05/16/21 05:09 Anion Gap 5.0 (3-11) 05/16/21 05:09 BUN 10 mg/dl (7-18) 05/16/21 05:09 Creatinine 0.80 mg/dl (0.6-1.4) 05/16/21 05:09 Est Cr Clr Drug Dosing 94.8 ml/min 05/16/21 05:09 Est GFR ( Amer) 115.7 ml/min 05/16/21 05:09 Est GFR (Non-Af Amer) 99.9 ml/min 05/16/21 05:09 BUN/Creatinine Ratio 12.1 (10-20) 05/16/21 05:09 Glucose 90 mg/dl (70-99) 05/16/21 05:09 POC Glucose 119 mg/dl (70-99) H 05/11/21 11:34 Calcium 8.7 mg/dl (8.5-10.1) 05/16/21 05:09 Phosphorus 3.8 mg/dl (2.5-4.9) 05/16/21 05:09 Magnesium 2.2 mg/dl (1.8-2.4) 05/16/21 05:09 Total Bilirubin 1.0 mg/dl (0.2-1) 05/15/21 04:41 Direct Bilirubin 1.0 mg/dl (0-0.2) H 05/12/21 04:28 AST 73 U/L (15-37) H 05/15/21 04:41 ALT 194 U/L (12-78) H 05/15/21 04:41 Alkaline Phosphatase 84 U/L (45-117) 05/15/21 04:41 Troponin I < 0.015 ng/ml (0-0.045) 05/11/21 11:19 Total Protein 6.3 gm/dl (6.4-8.2) L 05/15/21 04:41 Albumin 3.0 gm/dl (3.4-5.0) L 05/15/21 04:41 Globulin 3.3 gm/dl (2.5-4.0) 05/15/21 04:41 Albumin/Globulin Ratio 0.9 (0.9-2) 05/15/21 04:41 Lipase 601 U/L (73-393) H 05/14/21 06:59 Vitamin B12 1007 pg/ml (193-986) H 05/11/21 15:21 Folate > 20.00 ng/ml (>5.38) 05/11/21 15:21 Specimen Hemolysis 05/11/21 11:19 Nasal Screen MRSA (PCR) Negative (Negative) 05/11/21 15:30 Salicylates < 1.7 mg/dl (2.8-20) L 05/11/21 11:19 Urine Opiates Screen Neg (Neg) 05/11/21 13:45 Ur Methadone, Qual Neg (Neg) 05/11/21 13:45 Acetaminophen < 2 ug/ml (10-30) L 05/11/21 11:19 Urine Barbiturates Neg (Neg) 05/11/21 13:45 Ur Phencyclidine (PCP) Neg (Neg) 05/11/21 13:45 U Amphetamin/Meth Scrn Neg (Neg) 05/11/21 13:45 MDMA (Ecstasy) Screen Neg (Neg) 05/11/21 13:45 U Benzodiazepines Scrn Neg (Neg) 05/11/21 13:45 Ur Cocaine Metabolite Neg (Neg) 05/11/21 13:45 U Marijuana (THC) Screen Neg (Neg) 05/11/21 13:45 Ethyl Alcohol mg/dL 69.0 mg/dl (0-3) H 05/11/21 11:47 COVID-19 Eval Order Covid19 at [facility] 05/11/21 12:33 SARS-CoV-2 (PCR) NEGATIVE (Negative) 05/11/21 12:33 Impressions Liver Ultrasound 05/12/21 07:28 US liver CLINICAL HISTORY: 55 years-old Male presenting with eval for pancreatitis/gallstone. TECHNIQUE: Real-time grayscale ultrasound imaging of the upper abdomen was performed for a focused evaluation at the site of clinical concern. COMPARISON: None. FINDINGS: Visualized portion of the pancreas shows no evidence of acute abnormalities. Liver is slightly prominent measuring 17 cm in size with diffuse increase in echogenicity and coarsening of echotexture of its parenchyma without evidence of focal lesions or intrahepatic biliary dilatation. Gallbladder is fluid-filled without intraluminal calculi to suggest gallstones. Possible small amount of biliary sludge is seen on its dependent portion. No evidence of pericholecystic edema. Gallbladder wall is nondilated. Common bile duct is nondilated measuring 4 mm in diameter. Partially visualized right kidney shows no evidence of hydronephrosis. IMPRESSION: 1. Hepatic steatosis. 2. No sonographic evidence of cholelithiasis or cholecystitis. Possible mild gallbladder sludge. Nondilated common bile duct. 3. Partially visualized pancreas without evidence of inflammatory changes. ACT 112: Negative or not required by law. Electronically signed by: La Franco DO 05/12/2021 9:23 AM Medications Administered Current Inpatient Medications Enoxaparin Sodium (Enoxaparin Inj 40 Mg/0.4 Ml Syr) 40 mg SQ HS AMARI Stop: 06/14/21 20:59 Last Admin: 05/15/21 20:54 Dose: 40 mg Documented by: Famotidine (Famotidine 40 Mg Tablet) 40 mg PO QAM [facility] Stop: 06/11/21 08:59 Last Admin: 05/16/21 08:13 Dose: 40 mg Documented by: Fluoxetine HCl (Fluoxetine Hcl 20 Mg Cap) 20 mg PO TID [facility] Stop: 06/10/21 14:55 Last Admin: 05/16/21 08:13 Dose: 20 mg Documented by: Gabapentin (Gabapentin 600 Mg Tab) 600 mg PO Q24H [facility] Stop: 05/16/21 18:01 Folic Acid 1 mg/ Syringe 10 mls @ 5 mls/min IV QAM [facility] Stop: 06/10/21 15:29 Last Admin: 05/16/21 08:12 Dose: 5 mls/min Documented by: Lorazepam (Ativan) 1 mg in 2 mls @ 2 mls/min IV UD PRN; Protocol PRN Reason: EtOH Withdrawl AWSS Score 6,7 Stop: 06/10/21 14:55 Last Admin: 05/14/21 21:13 Dose: 2 mls/min Documented by: Lorazepam (Ativan) 2 mg in 4 mls @ 4 mls/min IV UD PRN; Protocol PRN Reason: EtOH Withdrawl AWSS Score 8,9 Stop: 06/10/21 14:55 Last Admin: 05/15/21 22:25 Dose: 4 mls/min Documented by: Lorazepam (Ativan) 3 mg in 6 mls @ 4 mls/min IV ONCE PRN; Protocol PRN Reason: EtOH Withdrawl AWSS Score >=10 Stop: 06/10/21 14:55 Last Admin: 05/14/21 19:59 Dose: 4 mls/min Documented by: Thiamine HCl 200 mg/ Sodium (Chloride) 52 mls @ 210 mls/hr IV Q12 [facility] Stop: 06/12/21 20:59 Last Infusion: 05/16/21 08:36 Dose: Infused Documented by: Dexmedetomidine HCl 400 mcg/ (Sodium Chloride) 100 mls @ 9.688 mls/hr IV .[id number] [facility]; Protocol Stop: 05/19/21 00:29 Last Admin: 05/16/21 07:22 Dose: Not Given Documented by: Lorazepam (Ativan) 3 mg in 6 mls @ 4 mls/min IV Q6H [facility] Stop: 06/14/21 09:59 Last Admin: 05/16/21 05:13 Dose: 4 mls/min Documented by: Labetalol HCl (Labetalol Hcl Iv 5 Mg/Ml 20ml) 10 mg IV Q4H PRN PRN Reason: SBP > 170 or DBP > 105 Stop: 06/12/21 18:14 Last Admin: 05/13/21 18:22 Dose: 10 mg Documented by: Losartan Potassium (Losartan Potassium 50 Mg Tab) 50 mg PO DAILY [facility] Stop: 06/11/21 08:59 Last Admin: 05/16/21 08:13 Dose: 50 mg Documented by: Melatonin (Melatonin 3 Mg Tab) 3 mg PO HS PRN PRN Reason: Sleep Stop: 06/13/21 21:06 Miscellaneous (Remove Nicoderm Patch) 1 ea N/A DAILY@0859 [facility] Stop: 06/11/21 08:58 Last Admin: 05/16/21 08:14 Dose: 1 ea Documented by: Nicotine (Nicotine 21 Mg/24 Hr Tdsy) 21 mg TD QAM [facility] Stop: 06/11/21 08:59 Last Admin: 05/16/21 08:13 Dose: 21 mg Documented by: Nicotine Polacrilex (Nicotine Polacrilex 2 Mg Gum) 1 piece MT PRN PRN PRN Reason: Agitation Stop: 06/13/21 00:10 Last Admin: 05/14/21 00:22 Dose: 1 piece Documented by: Ondansetron HCl (Ondansetron Inj 2 Mg/Ml 2 Ml Vial) 4 mg IV Q6H PRN PRN Reason: Nausea Stop: 06/10/21 14:55 Last Admin: 05/15/21 08:34 Dose: 4 mg Documented by:
--- NOTE | 2021-05-16 10:39 | Critical Care Progress Note ---
Date of Service May 16, 2021 Assessment & Plan (1) Alcohol withdrawal: Plan: Reason Critically Ill: 55-year-old male undergoing treatment for alcohol withdrawal presents to the ICU following worsening delirium tremens with increased Ativan requirements and now requiring Precedex drip. Neuro - Delirium tremens -No history of seizures with withdrawal but will maintain seizure precautions -Continue thiamine, folic acid -Continuous monitoring in ICU while requiring Precedex drip -Will plan to intubate if there is worsening or for symptoms and/or respiratory compromise Anxiety and depressioncontinue Prozac Cardiac - HTNcontinue Cozaar HLDholding statin until LFTs normalize Respiratory - No history of pulmonary disease. Currently maintaining oxygen saturations on room air without respiratory distress. Lungs clear to auscultation Continuous monitoring on pulse ox GI - Hepatic steatosisvisualized on liver ultrasound. Gallbladder is fluid-filled with evidence of gallstones but no evidence of pericholecystitis edema and nondilated. -LFTs trending down, continue to monitor --Elevated lipase No epigastric tenderness Could be from alcohol use Continue to monitor GERDfamotidine RENAL/LYTES - Creatinine within normal limits. Monitor routine BMPs replete electrolytes as indicated - Strict I's and O's ENDO - No history of diabetes or thyroid disease ICU hyperglycemic protocol HEME - --Macrocytic anemia Likely from alcohol use Continue to monitor H&H stable, monitor routine CBCs ID - No indication for infectious process at this --Prophylaxis VTE: Lovenox GI: Pepcid Lines: Peripheral Diet: Regular Plan: In/out: -518, urine output 2350 Continue with Ativan 3 mg every 6. If we have to give him more Ativan on top of this and I will increase it to 4 mg every 6 Continue with Precedex as an add-on to the Ativan. Keep the patient RASS -1-0. Potassium being replaced Continue with folic acid and thiamine. I have personally spent 37 minutes of critical care time in the direct management of this patient. This is a life/limb threatening event. This includes time spent evaluating patient, direct bedside care, chart review, placing orders, interpretation of diagnostic studies, discussion with consultants, patient, and family members, as well as other required patient management activities. This time is exclusive of all separately billable procedures, and teaching time and separate from and in addition to any other critical care service time. Thank you for allowing us to participate in the care of this patient. Please refer to my attending physician's documentation for any further recommendations. (2) Alcohol abuse: (3) GERD (gastroesophageal reflux disease): (4) Hypertension: (5) Depression: (6) Anxiety: (7) Delirium tremens: Admission and Anticipated Discharge Date Admission Date: May 11, 2021 Subjective Patient seen and examined at bedside. No acute distress, no adverse events overnight. Patient was on 0.5 Precedex at the time of examination Overnight he got 4 mg of Ativan on top of the standing Ativan which he is getting. Denies any chest pain, no shortness of breath He says that he is feeling better. Tolerating food. No nausea or vomiting. Review of Systems Review of Systems: All systems reviewed & are unremarkable except as noted in Subjective Physical Exam Physical Exam: Constitutional: No acute distress HEENT: EOMI, PERRLA Respiratory system: Decreased air entry bilaterally, no wheeze, no rhonchi, minimal crackles bilateral lower lobes CVS: S1-S2 positive, no murmurs or gallops Abdomen: Soft, nontender, nondistended, positive bowel sounds x4 Extremities: +2 pulses bilaterally radialis/ dorsalis pedis, no cyanosis, no edema Neuro: Awake alert oriented to self, answering simple questions Psych: Unable to assess G/U: No [place] Skin: no rashes, warm and dry Lymphatic: no cervical or axillary lymphadenopathy Results & Data Results & Data ([facility]) Vital Signs (Past 12 Hours) Vital Signs Temp Pulse Resp BP Pulse Ox 05/16/21 08:00 73 05/16/21 07:21 36.7 C 71 21 123/91 94 05/16/21 06:21 36.7 C 70 27 H 137/96 95 05/16/21 05:21 66 20 130/87 92 05/16/21 04:21 62 18 121/85 92 05/16/21 03:22 61 19 99/70 L 93 05/16/21 02:23 36.8 C 05/16/21 02:10 61 18 135/95 94 05/16/21 01:21 60 18 153/99 H 94 05/16/21 00:22 56 L 20 142/100 H 93 05/15/21 23:22 58 L 21 155/96 H 91 05/15/21 23:02 60 05/16/21 05:09 05/16/21 05:09 Coding Level of Care Code Critical Care 1st 30-74 mins Diagnoses Alcohol withdrawal F10.230 Complication of substance-induced condition: uncomplicated Alcohol abuse F10.10 GERD (gastroesophageal reflux disease) K21.9 Hypertension I10 Depression F32.9 Anxiety F41.9 Delirium tremens F10.231 Time Spent (min) 37 (1) Alcohol withdrawal Complication of substance-induced condition: uncomplicated Qualified Code(s): F10.230 - Alcohol dependence with withdrawal, uncomplicated
[2021-05-16] MEDS: LORazepam 2 MG/4 ML VIAL IV PRN ×2 (13:57→22:14)
--- NOTE | 2021-05-16 17:24 | Billing Data ---
Date of Service May 16, 2021 Coding Level of Care Code 45082 Subseq Hosp Care Lvl 2
[2021-05-16] MEDS: GABAPENTIN 600 MG TAB PO SCH (17:44)
[2021-05-16] MEDS: ENOXAPARIN INJ 40 MG/0.4 ML SYR SQ SCH (20:04)
[2021-05-17] MEDS: LORazepam 2 MG/4 ML VIAL IV PRN ×2 (01:19→06:58)
[2021-05-17] MEDS: LORazepam 3 MG/6 ML VIAL IV SCH ×3 (03:56→17:02)
[2021-05-17 05:11] LABS: Basophils # (auto) 0.02 K/uL (0-0.2); Basophils % (auto) 0.2 %; Eosinophils # (auto) 0.12 K/uL (0-0.5); Eosinophils % (auto) 1.5 %; Hematocrit (blood only) 39.1 % (42-52); Hemoglobin 13.1 g/dL (14.0-18.0); Immature Granulocytes # (auto) 0.07 K/uL (0.00-0.02); Immature Granulocytes % (auto) 0.8 %; Lymphocytes # (auto) 2.52 K/uL (1.2-3.4); Lymphocytes % (auto) 30.6 %; Mean Corpuscular Hgb Conc 33.5 g/dL (32-36); Mean Corpuscular Volume 101.6 fL (80-100); Mean Platelet Volume 8.6 fL (7.4-10.4); Monocytes # (auto) 1.03 K/uL (0.11-0.59); Monocytes % (auto) 12.5 %; Neutrophils # (auto) 4.48 K/uL (1.4-6.5); Neutrophils % (auto) 54.4 %; Platelet Count 200 K/uL (130-400); RDW Coefficient of Variation 14.3 % (11.5-14.5); Red Blood Count 3.85 M/uL (4.7-6.1); White Blood Count 8.24 K/uL (4.8-10.8)
[2021-05-17 05:29] LABS: Calcium 8.5 mg/dl (8.5-10.1); Creatinine Clr Calc Pharmacy 76.5 ml/min; Est GFR (African American) 99.5 ml/min; Est GFR (Non-African American) 85.8 ml/min; Magnesium 2.4 mg/dl (1.8-2.4); Potassium 3.8 mmol/L (3.5-5.1)
[2021-05-17 05:36] LABS: Phosphorus 4.5 mg/dl (2.5-4.9)
[2021-05-17] MEDS: POTASSIUM CHLORIDE / WTR 10 MEQ/100 ML PLCT IV SCH ×2 (06:30→07:47)
[2021-05-17] MEDS: FOLIC ACID 1 MG in SYRINGE 9.8 ML IV SCH (07:47)
[2021-05-17] MEDS: LOSARTAN POTASSIUM 50 MG TAB PO SCH (07:48)
[2021-05-17] MEDS: NICOTINE 21 MG/24 HR TDSY TD SCH (07:48)
[2021-05-17] MEDS: FLUoxetine HCL 20 MG CAP PO SCH ×3 (07:48→20:01)
[2021-05-17] MEDS: FAMOTIDINE 40 MG TABLET PO SCH (07:48)
[2021-05-17] MEDS: THIAMINE HCL 200 MG in SODIUM CHLORIDE 0.9% 50 ML IV SCH (07:50)
--- NOTE | 2021-05-17 08:35 | Medical Student Progress Note ---
Date of Service May 17, 2021 Assessment & Plan (1) Alcohol withdrawal: Plan: Gregorio Perez is a 55 y/o male with longstanding history of alcohol use disorder (with ~3 prior trials of rehab), depression, anxiety, HTN, and HTD who presented to the ED on 05/11 in alcohol withdrawal with hallucinosis, last drink occurring on 05/10 at 1900. He was transferred to the ICU on 05/14 for close hemodynamic and neurologic monitoring for Delirium Tremens. Precedex has been di scontinued and he is clinically improving. Alcohol Withdrawal, Delirium Tremens -Maintain seizure precautions, AWSS with scheduled IV ativan 3 mg q8h -Gabapentin taper finished -Dexmedetomidine discontinued presently -Folic acid 1mg IV daily -continue Thiamine 200mg IV BID -Based on ICU recommendations, will downgrade status when medically cleared, likely tomorrow; intubation considered if worsening clinical status/respiratory distress -Consider rehab placement after acute issues resolve - at this point patient continues to agree to inpatient rehab Alcohol-induced Pancreatitis, resolving -Localized to midepigastric area with radiation to the back, LLQ in setting of transaminitis, hyperbilirubinemia, and elevated lipase -RUQ US: demonstrating hepatic steatosis without cholelithiasis, cholecystitis. or CBD dilation; mild GB sludge; no inflammation seen on partially visualized pancreas -Suspect secondary to alcohol-induced pancreatitis -Pain significantly improved. Lipase downtrending. No abdominal/back pain today. -Continue regular diet Transaminitis, resolving - Suspect secondary to above - LFTs downtrendng GERD -Continue home Pepcid HTN -Withdrawal management as above -Labetalol 10mg IV Q4H PRN for SBP > 170, DBP > 105 -Continue losartan 50 mg PO daily HLD -Hold statin for now, plan to re-start once LFTs normalized Depression -Continue Prozac 20mg po TID as dosed at home FEN/GI: Regular diet DVT PPx: SCDs Code: Full code Dispo: ICU, consulted CM to assist with inpatient alcohol rehab Complication of substance-induced condition: uncomplicated Qualified Code(s): F10.230 - Alcohol dependence with withdrawal, uncomplicated (2) GERD (gastroesophageal reflux disease): (3) Hypertension: (4) Hyperlipidemia: (5) Depression: Admission and Anticipated Discharge Date Admission Date: May 11, 2021 Supervising Attestation I personally examined the patient and verified all wells points of history and exam, discussed case, and agree with decision making with Richa Kisha MS4. Feeling better, wants to get out of the ICU wants to move out of bed more, wants to get off of medications. Wants to talk with psych liaison more and work on counseling for anxiety. vitals noted, calm appearing nad. Coherent and oriented, seems to be showing good logic and reasoning.. heent nc at mmm breathing unlabored no accessory muscles good effort no focal neuro deficits EtOH pancreatitis - improved, clinically essentially resolved EtOH abuse/withdrawal -showing improvement overall, wean benzos, work on anxiety management. Otherwise as above Subjective Overall, patient is continuing to improve. He does not have any acute complaints and there were not any acute events overnight. Mr. Perez is A&Ox4 and desires to tend to himself (bathe, brush his teeth), see his family, and looks forward to being transferred out of the ICU. No hallucinations, delusions, nausea, vomiting currently present. Review of Systems Review of Systems: All systems reviewed & are unremarkable except as noted in Subjective Physical Exam Physical Exam: General: A&Ox4. NAD. HEENT: Atraumatic, normocephalic. Pulm: Slight expiratory wheeze in upper lobes b/l, -rales, -rhonchi. Symmetrical chest rise. No increase work of breathing. No respiratory distress. Cardiac: RRR, -mrg. Radial pulses intact and symmetrical. No LE edema. Neuro: mild bilateral arm tremor was with initiation of movement Skin: warm, dry, no rash Results & Data ([facility]) Vital Signs (Past 12 Hours) Vital Signs Temp Pulse 05/17/21 06:08 36.7 C 05/16/21 23:55 71 05/16/21 22:17 36.7 C 05/16/21 20:35 36.7 C Laboratory Results Laboratory Results WBC 8.24 K/uL (4.8-10.8) 05/17/21 04:38 RBC 3.85 M/uL (4.7-6.1) L 05/17/21 04:38 Hgb 13.1 g/dL (14.0-18.0) L 05/17/21 04:38 Hct 39.1 % (42-52) L 05/17/21 04:38 MCV 101.6 fL (80-100) H 05/17/21 04:38 MCH 34.0 pg (25-34) 05/17/21 04:38 MCHC 33.5 g/dL (32-36) 05/17/21 04:38 RDW Std Deviation 53.0 fL (36.4-46.3) H 05/17/21 04:38 RDW Coeff of Thelma 14.3 % (11.5-14.5) 05/17/21 04:38 Plt Count 200 K/uL (130-400) 05/17/21 04:38 MPV 8.6 fL (7.4-10.4) 05/17/21 04:38 Immature Gran % (Auto) 0.8 % 05/17/21 04:38 Neut % (Auto) 54.4 % 05/17/21 04:38 Lymph % (Auto) 30.6 % 05/17/21 04:38 Edmunds % (Auto) 12.5 % 05/17/21 04:38 Eos % (Auto) 1.5 % 05/17/21 04:38 Baso % (Auto) 0.2 % 05/17/21 04:38 Neut # (Auto) 4.48 K/uL (1.4-6.5) 05/17/21 04:38 Lymph # (Auto) 2.52 K/uL (1.2-3.4) 05/17/21 04:38 Edmunds # (Auto) 1.03 K/uL (0.11-0.59) H 05/17/21 04:38 Eos # (Auto) 0.12 K/uL (0-0.5) 05/17/21 04:38 Baso # (Auto) 0.02 K/uL (0-0.2) 05/17/21 04:38 Immature Gran # (Auto) 0.07 K/uL (0.00-0.02) H 05/17/21 04:38 PT 11.8 Seconds (9.0-12.0) 05/12/21 04:28 INR 1.2 (0.9-1.1) H 05/12/21 04:28 APTT 24.5 Seconds (21.0-31.0) 05/11/21 11:19 PTT Ratio 0.9 05/11/21 11:19 Sodium 135 mmol/L (136-145) L 05/17/21 04:38 Potassium 3.8 mmol/L (3.5-5.1) 05/17/21 04:38 Chloride 102 mmol/L (98-107) 05/17/21 04:38 Carbon Dioxide 28 mmol/L (21-32) 05/17/21 04:38 Anion Gap 5.0 (3-11) 05/17/21 04:38 BUN 13 mg/dl (7-18) 05/17/21 04:38 Creatinine 0.98 mg/dl (0.6-1.4) 05/17/21 04:38 Est Cr Clr Drug Dosing 76.5 ml/min 05/17/21 04:38 Est GFR ( Amer) 99.5 ml/min 05/17/21 04:38 Est GFR (Non-Af Amer) 85.8 ml/min 05/17/21 04:38 BUN/Creatinine Ratio 13.0 (10-20) 05/17/21 04:38 Glucose 91 mg/dl (70-99) 05/17/21 04:38 POC Glucose 119 mg/dl (70-99) H 05/11/21 11:34 Calcium 8.5 mg/dl (8.5-10.1) 05/17/21 04:38 Phosphorus 4.5 mg/dl (2.5-4.9) 05/17/21 04:38 Magnesium 2.4 mg/dl (1.8-2.4) 05/17/21 04:38 Total Bilirubin 1.0 mg/dl (0.2-1) 05/15/21 04:41 Direct Bilirubin 1.0 mg/dl (0-0.2) H 05/12/21 04:28 AST 73 U/L (15-37) H 05/15/21 04:41 ALT 194 U/L (12-78) H 05/15/21 04:41 Alkaline Phosphatase 84 U/L (45-117) 05/15/21 04:41 Troponin I < 0.015 ng/ml (0-0.045) 05/11/21 11:19 Total Protein 6.3 gm/dl (6.4-8.2) L 05/15/21 04:41 Albumin 3.0 gm/dl (3.4-5.0) L 05/15/21 04:41 Globulin 3.3 gm/dl (2.5-4.0) 05/15/21 04:41 Albumin/Globulin Ratio 0.9 (0.9-2) 05/15/21 04:41 Lipase 601 U/L (73-393) H 05/14/21 06:59 Vitamin B12 1007 pg/ml (193-986) H 05/11/21 15:21 Folate > 20.00 ng/ml (>5.38) 05/11/21 15:21 Specimen Hemolysis 05/11/21 11:19 Nasal Screen MRSA (PCR) Negative (Negative) 05/11/21 15:30 Salicylates < 1.7 mg/dl (2.8-20) L 05/11/21 11:19 Urine Opiates Screen Neg (Neg) 05/11/21 13:45 Ur Methadone, Qual Neg (Neg) 05/11/21 13:45 Acetaminophen < 2 ug/ml (10-30) L 05/11/21 11:19 Urine Barbiturates Neg (Neg) 05/11/21 13:45 Ur Phencyclidine (PCP) Neg (Neg) 05/11/21 13:45 U Amphetamin/Meth Scrn Neg (Neg) 05/11/21 13:45 MDMA (Ecstasy) Screen Neg (Neg) 05/11/21 13:45 U Benzodiazepines Scrn Neg (Neg) 05/11/21 13:45 Ur Cocaine Metabolite Neg (Neg) 05/11/21 13:45 U Marijuana (THC) Screen Neg (Neg) 05/11/21 13:45 Ethyl Alcohol mg/dL 69.0 mg/dl (0-3) H 05/11/21 11:47 COVID-19 Eval Order Covid19 at [facility] 05/11/21 12:33 SARS-CoV-2 (PCR) NEGATIVE (Negative) 05/11/21 12:33 Impressions Liver Ultrasound 05/12/21 07:28 US liver CLINICAL HISTORY: 55 years-old Male presenting with eval for pancreatitis/gallstone. TECHNIQUE: Real-time grayscale ultrasound imaging of the upper abdomen was per formed for a focused evaluation at the site of clinical concern. COMPARISON: None. FINDINGS: Visualized portion of the pancreas shows no evidence of acute abnormalities. Liver is slightly prominent measuring 17 cm in size with diffuse increase in echogenicity and coarsening of echotexture of its parenchyma without evidence of focal lesions or intrahepatic biliary dilatation. Gallbladder is fluid-filled without intraluminal calculi to suggest gallstones. Possible small amount of biliary sludge is seen on its dependent portion. No evidence of pericholecystic edema. Gallbladder wall is nondilated. Common bile duct is nondilated measuring 4 mm in diameter. Partially visualized right kidney shows no evidence of hydronephrosis. IMPRESSION: 1. Hepatic steatosis. 2. No sonographic evidence of cholelithiasis or cholecystitis. Possible mild gallbladder sludge. Nondilated common bile duct. 3. Partially visualized pancreas without evidence of inflammatory changes. ACT 112: Negative or not required by law. Electronically signed by: La Franco DO 05/12/2021 9:23 AM Medications Administered Current Inpatient Medications Enoxaparin Sodium (Enoxaparin Inj 40 Mg/0.4 Ml Syr) 40 mg SQ HS [facility] Stop: 06/14/21 20:59 Last Admin: 05/16/21 20:04 Dose: 40 mg Documented by: Famotidine (Famotidine 40 Mg Tablet) 40 mg PO QAM [facility] Stop: 06/11/21 08:59 Last Admin: 05/17/21 07:48 Dose: 40 mg Documented by: Fluoxetine HCl (Fluoxetine Hcl 20 Mg Cap) 20 mg PO TID [facility] Stop: 06/10/21 14:55 Last Admin: 05/17/21 07:48 Dose: 20 mg Documented by: Folic Acid 1 mg/ Syringe 10 mls @ 5 mls/min IV QAM [facility] Stop: 06/10/21 15:29 Last Admin: 05/17/21 07:47 Dose: 5 mls/min Documented by: Lorazepam (Ativan) 1 mg in 2 mls @ 2 mls/min IV UD PRN; Protocol PRN Reason: EtOH Withdrawl AWSS Score 6,7 Stop: 06/10/21 14:55 Last Admin: 05/14/21 21:13 Dose: 2 mls/min Documented by: Lorazepam (Ativan) 2 mg in 4 mls @ 4 mls/min IV UD PRN; Protocol PRN Reason: EtOH Withdrawl AWSS Score 8,9 Stop: 06/10/21 14:55 Last Admin: 05/17/21 06:58 Dose: 4 mls/min Documented by: Lorazepam (Ativan) 3 mg in 6 mls @ 4 mls/min IV ONCE PRN; Protocol PRN Reason: EtOH Withdrawl AWSS Score >=10 Stop: 06/10/21 14:55 Last Admin: 05/14/21 19:59 Dose: 4 mls/min Documented by: Thiamine HCl 200 mg/ Sodium (Chloride) 52 mls @ 210 mls/hr IV Q12 [facility] Stop: 06/12/21 20:59 Last Infusion: 05/17/21 08:15 Dose: Infused Documented by: Dexmedetomidine HCl 400 mcg/ (Sodium Chloride) 100 mls @ 0 mls/hr IV .Q0M [facility]; Protocol Stop: 05/19/21 00:29 Last Admin: 05/16/21 21:05 Dose: Not Given Documented by: Lorazepam (Ativan) 3 mg in 6 mls @ 4 mls/min IV Q6H [facility] Stop: 06/14/21 09:59 Last Admin: 05/17/21 08:47 Dose: 4 mls/min Documented by: Labetalol HCl (Labetalol Hcl Iv 5 Mg/Ml 20ml) 10 mg IV Q4H PRN PRN Reason: SBP > 170 or DBP > 105 Stop: 06/12/21 18:14 Last Admin: 05/13/21 18:22 Dose: 10 mg Documented by: Losartan Potassium (Losartan Potassium 50 Mg Tab) 50 mg PO DAILY [facility] Stop: 06/11/21 08:59 Last Admin: 05/17/21 07:48 Dose: 50 mg Documented by: Melatonin (Melatonin 3 Mg Tab) 3 mg PO HS PRN PRN Reason: Sleep Stop: 06/13/21 21:06 Miscellaneous (Remove Nicoderm Patch) 1 ea N/A DAILY@0859 [facility] Stop: 06/11/21 08:58 Last Admin: 05/17/21 07:48 Dose: 1 ea Documented by: Nicotine (Nicotine 21 Mg/24 Hr Tdsy) 21 mg TD QAM [facility] Stop: 06/11/21 08:59 Last Admin: 05/17/21 07:48 Dose: 21 mg Documented by: Nicotine Polacrilex (Nicotine Polacrilex 2 Mg Gum) 1 piece MT PRN PRN PRN Reason: Agitation Stop: 06/13/21 00:10 Last Admin: 05/14/21 00:22 Dose: 1 piece Documented by: Ondansetron HCl (Ondansetron Inj 2 Mg/Ml 2 Ml Vial) 4 mg IV Q6H PRN PRN Reason: Nausea Stop: 06/10/21 14:55 Last Admin: 05/15/21 08:34 Dose: 4 mg Documented by:
[2021-05-17] MEDS ORDERED: LORazepam 3 MG/6 ML VIAL IV SCH (10:29)
[2021-05-17] MEDS: chlordiazePOXIDE HCl 25 MG CAP PO PRN ×3 (11:16→23:05)
[2021-05-17] MEDS ORDERED: LORazepam 2 MG/4 ML VIAL IV STA (11:25)
--- NOTE | 2021-05-17 13:23 | Critical Care Progress Note ---
Date of Service May 17, 2021 Assessment & Plan (1) Alcohol withdrawal: Plan: Reason Critically Ill: 55-year-old male undergoing treatment for alcohol withdrawal presents to the ICU following worsening delirium tremens with increased Ativan requirements and now requiring Precedex drip. Neuro - Delirium tremens -No history of seizures with withdrawal but will maintain seizure precautions -Continue thiamine, folic acid -Continuous monitoring in ICU while requiring Precedex drip -Will plan to intubate if there is worsening or for symptoms and/or respiratory compromise Anxiety and depressioncontinue Prozac Cardiac - HTNcontinue Cozaar HLDholding statin until LFTs normalize Respiratory - No history of pulmonary disease. Currently maintaining oxygen saturations on room air without respiratory distress. Lungs clear to auscultation Continuous monitoring on pulse ox GI - Hepatic steatosisvisualized on liver ultrasound. Gallbladder is fluid-filled with evidence of gallstones but no evidence of pericholecystitis edema and nondilated. -LFTs trending down, continue to monitor --Elevated lipase No epigastric tenderness Could be from alcohol use Continue to monitor GERDfamotidine RENAL/LYTES - Creatinine within normal limits. Monitor routine BMPs replete electrolytes as indicated - Strict I's and O's ENDO - No history of diabetes or thyroid disease ICU hyperglycemic protocol HEME - --Macrocytic anemia Likely from alcohol use Continue to monitor H&H stable, monitor routine CBCs ID - No indication for infectious process at this --Prophylaxis VTE: Lovenox GI: Pepcid Lines: Peripheral Diet: Regular Plan: In/out: -1.3 L, urine output 1850 Change thiamine and folic acid to p.o. Decrease Ativan to 3 mg every 8 hours Start as needed chlordiazepoxide as it will be long-acting Goal is to have patient off standing Ativan I have personally spent 36 minutes of critical care time in the direct management of this patient. This is a life/limb threatening event. This includes time spent evaluating patient, direct bedside care, chart review, placing orders, interpretation of diagnostic studies, discussion with consultants, patient, and family members, as well as other required patient management activities. This time is exclusive of all separately billable procedures, and teaching time and separate from and in addition to any other critical care service time. Thank you for allowing us to participate in the care of this patient. Please refer to my attending physician's documentation for any further recommendations. (2) Alcohol abuse: (3) GERD (gastroesophageal reflux disease): (4) Hypertension: (5) Depression: (6) Anxiety: (7) Delirium tremens: Admission and Anticipated Discharge Date Admission Date: May 11, 2021 Subjective Patient seen and examined at bedside. No acute distress, no adverse events overnight. Patient has been off Precedex since yesterday evening. He says that he is feeling better. He does get bouts of anxiety. Denies any hallucination auditory or tactile. Occasional visual hallucinations but they are is improving. No nausea or vomiting. Review of Systems Review of Systems: All systems reviewed & are unremarkable except as noted in Subjective Physical Exam Physical Exam: Constitutional: No acute distress HEENT: EOMI, PERRLA Respiratory system: Decreased air entry bilaterally, no wheeze, no rhonchi, no crackles CVS: S1-S2 positive, no murmurs or gallops Abdomen: Soft, nontender, nondistended, positive bowel sounds x4 Extremities: +2 pulses bilaterally radialis/ dorsalis pedis, no cyanosis, no edema Neuro: Awake alert oriented to self and place Psych: Normal mood and affect G/U: No Quintero Skin: no rashes, warm and dry Lymphatic: no cervical or axillary lymphadenopathy Results & Data Results & Data ([facility]) Vital Signs (Past 12 Hours) Vital Signs Temp Pulse Resp BP Pulse Ox 05/17/21 11:21 112 H 18 141/93 H 97 05/17/21 10:21 100 H 12 139/96 96 05/17/21 09:21 87 19 133/90 89 L 05/17/21 08:21 103 H 17 123/92 94 05/17/21 07:21 73 17 122/72 93 05/17/21 06:08 36.7 C 05/17/21 04:38 05/17/21 04:38 Coding Level of Care Code Critical Care 1st 30-74 mins Diagnoses Alcohol withdrawal F10.230 Complication of substance-induced condition: uncomplicated Alcohol abuse F10.10 GERD (gastroesophageal reflux disease) K21.9 Hypertension I10 Depression F32.9 Anxiety F41.9 Delirium tremens F10.231 Time Spent (min) 36 (1) Alcohol withdrawal Complication of substance-induced condition: uncomplicated Qualified Code(s): F10.230 - Alcohol dependence with withdrawal, uncomplicated
--- NOTE | 2021-05-17 18:06 | Billing Data ---
Date of Service May 17, 2021 Coding Level of Care Code 34700 Subseq Hosp Care Lvl 2
[2021-05-17] MEDS: ENOXAPARIN INJ 40 MG/0.4 ML SYR SQ SCH (20:01)
[2021-05-18] MEDS: LORazepam 3 MG/6 ML VIAL IV SCH (01:20)
[2021-05-18 05:39] LABS: Basophils # (auto) 0.03 K/uL (0-0.2); Basophils % (auto) 0.4 %; Eosinophils # (auto) 0.11 K/uL (0-0.5); Eosinophils % (auto) 1.4 %; Hematocrit (blood only) 39.3 % (42-52); Hemoglobin 13.2 g/dL (14.0-18.0); Immature Granulocytes # (auto) 0.06 K/uL (0.00-0.02); Immature Granulocytes % (auto) 0.8 %; Lymphocytes % (auto) 30.3 %; Mean Corpuscular Hemoglobin 34.3 pg (25-34); Mean Corpuscular Hgb Conc 33.6 g/dL (32-36); Mean Corpuscular Volume 102.1 fL (80-100); Mean Platelet Volume 8.6 fL (7.4-10.4); Monocytes # (auto) 1.22 K/uL (0.11-0.59); Monocytes % (auto) 15.4 %; Neutrophils # (auto) 4.11 K/uL (1.4-6.5); Neutrophils % (auto) 51.7 %; Platelet Count 215 K/uL (130-400); RDW Coefficient of Variation 14.2 % (11.5-14.5); RDW Standard Deviation 53.3 fL (36.4-46.3); Red Blood Count 3.85 M/uL (4.7-6.1); White Blood Count 7.93 K/uL (4.8-10.8)
[2021-05-18 06:08] LABS: BUN Creatinine Ratio 12.9 (10-20); Bilirubin Direct 0.3 mg/dl (0-0.2); Calcium 8.7 mg/dl (8.5-10.1); Creatinine Clr Calc Pharmacy 78.8 ml/min; Est GFR (African American) 103.3 ml/min; Est GFR (Non-African American) 89.1 ml/min; Magnesium 2.5 mg/dl (1.8-2.4)
[2021-05-18 06:11] LABS: Bilirubin,Total 0.7 mg/dl (0.2-1); Phosphorus 4.2 mg/dl (2.5-4.9); Total Protein 6.5 gm/dl (6.4-8.2)
[2021-05-18] MEDS: LOSARTAN POTASSIUM 50 MG TAB PO SCH (07:58)
[2021-05-18] MEDS: NICOTINE 21 MG/24 HR TDSY TD SCH (07:58)
[2021-05-18] MEDS: FLUoxetine HCL 20 MG CAP PO SCH (07:58)
[2021-05-18] MEDS: FAMOTIDINE 40 MG TABLET PO SCH (07:59)
[2021-05-18] MEDS: chlordiazePOXIDE HCl 25 MG CAP PO PRN (08:00)
[2021-05-18] MEDS ORDERED: THIAMINE HCL 100 MG TAB PO SCH (09:00)
[2021-05-18] MEDS ORDERED: FOLIC ACID 1 MG TAB PO SCH (09:00)
[2021-05-18] MEDS ORDERED: MULTIVITAMIN TAB PO SCH (09:00)
--- NOTE | 2021-05-18 09:44 | Medical Student Progress Note ---
Date of Service May 18, 2021 Assessment & Plan (1) Alcohol withdrawal: Plan: Gregorio Perez is a 55 y/o male with longstanding history of alcohol use disorder (with ~3 prior trials of rehab), depression, anxiety, HTN, and HTD who presented to the ED on 05/11 in alcohol withdrawal with hallucinosis, last drink occurring on 05/10 at 1900. He was transferred to the ICU on 05/14 for close hemodynamic and neurologic monitoring for Delirium Tremens. Precedex has been di scontinued, he has been tapered off of Ativan, and is currently receiving Librium 50 mg q6h. He is clinically improving. Alcohol Withdrawal, Delirium Tremens -Maintain seizure precautions, AWSS with scheduled Librium PO 50 mg q6h -Gabapentin taper finished -Dexmedetomidine, Ativan discontinued -Folic acid 1 mg PO daily -Thiamine 100 mg PO daily -Based on ICU recommendations, downgrade status from ICU to Med/Surg with Telemetry -Consider rehab placement after acute issues resolve Alcohol-induced Pancreatitis, resolved -Localized to midepigastric area with radiation to the back, LLQ in setting of transaminitis, hyperbilirubinemia, and elevated lipase -RUQ US: demonstrating hepatic steatosis without cholelithiasis, cholecystitis. or CBD dilation; mild GB sludge; no inflammation seen on partially visualized pancreas -Suspect secondary to alcohol-induced pancreatitis -Pain significantly improved. Lipase downtrending. No abdominal/back pain today. -Continue regular diet Transaminitis, resolving - Suspect secondary to above - LFTs downtrendng; AST: 37 (vs 73 on 05/15), ALT: 102 (vs. 194 on 05/15) GERD -Continue home Pepcid HTN -Withdrawal management as above -Labetalol 10mg IV Q4H PRN for SBP > 170, DBP > 105 -Continue losartan 50 mg PO daily HLD -LFTs are normalizing -Re-start statin after discharge Depression -Continue Prozac 20mg po TID as dosed at home FEN/GI: Regular diet DVT PPx: SCDs Code: Full code Dispo: Med/Surg w/ Telemetry, consulted CM to assist with inpatient alcohol rehab Complication of substance-induced condition: uncomplicated Qualified Code(s): F10.230 - Alcohol dependence with withdrawal, uncomplicated (2) GERD (gastroesophageal reflux disease): (3) Hypertension: (4) Hyperlipidemia: (5) Depression: Admission and Anticipated Discharge Date Admission Date: May 11, 2021 Subjective Overall, Mr. Perez appears to be doing better and states that he is ready to go home. He is seen and examined at bedside. No acute distress, no adverse events overnight. He denies hallucinations (auditory, tactile, visual), nausea, vomiting, SOB, palpitations, abdominal pain, diarrhea, or constipation. He speaks of some mild anxiety. Mr. Perez has been able to ambulate about his room and sit up in the chair. He remains off of the Precedex and has been tapered off of the Ativan. Librium dosage is currently 50 mg q6h. Review of Systems Review of Systems: All systems reviewed & are unremarkable except as noted in Subjective Physical Exam Physical Exam: General: A&Ox4. NAD. HEENT: Atraumatic, normocephalic. Pulm: Clear to auscultation bilaterally, -wheezes -rales, -rhonchi. Symmetrical chest rise. No increase work of breathing. No respiratory distress. Cardiac: RRR, -mrg. Radial pulses intact and symmetrical. No LE edema. Neuro: no tremor was with initiation of movement Skin: warm, dry, no rash Results & Data ([facility]) Vital Signs (Past 12 Hours) Vital Signs Temp Pulse Resp BP Pulse Ox 05/18/21 07:21 37.1 C 63 14 109/67 97 05/18/21 06:22 65 20 128/79 95 05/18/21 05:21 67 17 98/70 L 93 05/18/21 04:21 36.9 C 61 19 109/67 95 05/18/21 03:00 68 18 95 05/18/21 02:36 72 19 95 05/18/21 01:21 36.9 C 80 20 133/78 94 05/18/21 00:21 83 15 129/90 93 05/17/21 23:21 36.9 C 69 19 146/94 H 95 05/17/21 22:21 76 18 127/75 95 Laboratory Results Laboratory Results WBC 7.93 K/uL (4.8-10.8) 05/18/21 05:27 RBC 3.85 M/uL (4.7-6.1) L 05/18/21 05:27 Hgb 13.2 g/dL (14.0-18.0) L 05/18/21 05:27 Hct 39.3 % (42-52) L 05/18/21 05:27 MCV 102.1 fL (80-100) H 05/18/21 05:27 MCH 34.3 pg (25-34) H 05/18/21 05:27 MCHC 33.6 g/dL (32-36) 05/18/21 05:27 RDW Std Deviation 53.3 fL (36.4-46.3) H 05/18/21 05:27 RDW Coeff of Thelma 14.2 % (11.5-14.5) 05/18/21 05:27 Plt Count 215 K/uL (130-400) 05/18/21 05:27 MPV 8.6 fL (7.4-10.4) 05/18/21 05:27 Immature Gran % (Auto) 0.8 % 05/18/21 05:27 Neut % (Auto) 51.7 % 05/18/21 05:27 Lymph % (Auto) 30.3 % 05/18/21 05:27 [place] % (Auto) 15.4 % 05/18/21 05:27 Eos % (Auto) 1.4 % 05/18/21 05:27 Baso % (Auto) 0.4 % 05/18/21 05:27 Neut # (Auto) 4.11 K/uL (1.4-6.5) 05/18/21 05:27 Lymph # (Auto) 2.40 K/uL (1.2-3.4) 05/18/21 05:27 [place] # (Auto) 1.22 K/uL (0.11-0.59) H 05/18/21 05:27 Eos # (Auto) 0.11 K/uL (0-0.5) 05/18/21 05:27 Baso # (Auto) 0.03 K/uL (0-0.2) 05/18/21 05:27 Immature Gran # (Auto) 0.06 K/uL (0.00-0.02) H 05/18/21 05:27 PT 11.8 Seconds (9.0-12.0) 05/12/21 04:28 INR 1.2 (0.9-1.1) H 05/12/21 04:28 APTT 24.5 Seconds (21.0-31.0) 05/11/21 11:19 PTT Ratio 0.9 05/11/21 11:19 Sodium 135 mmol/L (136-145) L 05/18/21 05:27 Potassium 4.0 mmol/L (3.5-5.1) 05/18/21 05:27 Chloride 102 mmol/L (98-107) 05/18/21 05:27 Carbon Dioxide 28 mmol/L (21-32) 05/18/21 05:27 Anion Gap 5.0 (3-11) 05/18/21 05:27 BUN 12 mg/dl (7-18) 05/18/21 05:27 Creatinine 0.95 mg/dl (0.6-1.4) 05/18/21 05:27 Est Cr Clr Drug Dosing 78.8 ml/min 05/18/21 05:27 Est GFR ( Amer) 103.3 ml/min 05/18/21 05:27 Est GFR (Non-Af Amer) 89.1 ml/min 05/18/21 05:27 BUN/Creatinine Ratio 12.9 (10-20) 05/18/21 05:27 Glucose 103 mg/dl (70-99) H 05/18/21 05:27 POC Glucose 119 mg/dl (70-99) H 05/11/21 11:34 Calcium 8.7 mg/dl (8.5-10.1) 05/18/21 05:27 Phosphorus 4.2 mg/dl (2.5-4.9) 05/18/21 05:27 Magnesium 2.5 mg/dl (1.8-2.4) H 05/18/21 05:27 Total Bilirubin 0.7 mg/dl (0.2-1) 05/18/21 05:27 Direct Bilirubin 0.3 mg/dl (0-0.2) H 05/18/21 05:27 AST 37 U/L (15-37) 05/18/21 05:27 ALT 102 U/L (12-78) H 05/18/21 05:27 Alkaline Phosphatase 75 U/L (45-117) 05/18/21 05:27 Troponin I < 0.015 ng/ml (0-0.045) 05/11/21 11:19 Total Protein 6.5 gm/dl (6.4-8.2) 05/18/21 05:27 Albumin 3.0 gm/dl (3.4-5.0) L 05/18/21 05:27 Globulin 3.3 gm/dl (2.5-4.0) 05/15/21 04:41 Albumin/Globulin Ratio 0.9 (0.9-2) 05/15/21 04:41 Lipase 601 U/L (73-393) H 05/14/21 06:59 Vitamin B12 1007 pg/ml (193-986) H 05/11/21 15:21 Folate > 20.00 ng/ml (>5.38) 05/11/21 15:21 Specimen Hemolysis 05/11/21 11:19 Nasal Screen MRSA (PCR) Negative (Negative) 05/11/21 15:30 Salicylates < 1.7 mg/dl (2.8-20) L 05/11/21 11:19 Urine Opiates Screen Neg (Neg) 05/11/21 13:45 Ur Methadone, Qual Neg (Neg) 05/11/21 13:45 Acetaminophen < 2 ug/ml (10-30) L 05/11/21 11:19 Urine Barbiturates Neg (Neg) 05/11/21 13:45 Ur Phencyclidine (PCP) Neg (Neg) 05/11/21 13:45 U Amphetamin/Meth Scrn Neg (Neg) 05/11/21 13:45 MDMA (Ecstasy) Screen Neg (Neg) 05/11/21 13:45 U Benzodiazepines Scrn Neg (Neg) 05/11/21 13:45 Ur Cocaine Metabolite Neg (Neg) 05/11/21 13:45 U Marijuana (THC) Screen Neg (Neg) 05/11/21 13:45 Ethyl Alcohol mg/dL 69.0 mg/dl (0-3) H 05/11/21 11:47 COVID-19 Eval Order Covid19 at [facility] 05/11/21 12:33 SARS-CoV-2 (PCR) NEGATIVE (Negative) 05/11/21 12:33 Impressions Liver Ultrasound 05/12/21 07:28 US liver CLINICAL HISTORY: 55 years-old Male presenting with eval for pancreati tis/gallstone. TECHNIQUE: Real-time grayscale ultrasound imaging of the upper abdomen was performed for a focused evaluation at the site of clinical concern. COMPARISON: None. FINDINGS: Visualized portion of the pancreas shows no evidence of acute abnormalities. Liver is slightly prominent measuring 17 cm in size with diffuse increase in echogenicity and coarsening of echotexture of its parenchyma without evidence of focal lesions or intrahepatic biliary dilatation. Gallbladder is fluid-filled without intraluminal calculi to suggest gallstones. Possible small amount of biliary sludge is seen on its dependent portion. No evidence of pericholecystic edema. Gallbladder wall is nondilated. Common bile duct is nondilated measuring 4 mm in diameter. Partially visualized right kidney shows no evidence of hydronephrosis. IMPRESSION: 1. Hepatic steatosis. 2. No sonographic evidence of cholelithiasis or cholecystitis. Possible mild gallbladder sludge. Nondilated common bile duct. 3. Partially visualized pancreas without evidence of inflammatory changes. ACT 112: Negative or not required by law. Electronically signed by: La Franco DO 05/12/2021 9:23 AM Medications Administered Current Inpatient Medications Chlordiazepoxide HCl (Chlordiazepoxide Hcl 25 Mg Cap) 50 mg PO Q6H PRN PRN Reason: AWSS >=8 Stop: 06/16/21 10:32 Last Admin: 05/18/21 08:00 Dose: 50 mg Documented by: Enoxaparin Sodium (Enoxaparin Inj 40 Mg/0.4 Ml Syr) 40 mg SQ HS [facility] Stop: 06/14/21 20:59 Last Admin: 05/17/21 20:01 Dose: 40 mg Documented by: Famotidine (Famotidine 40 Mg Tablet) 40 mg PO QAM [facility] Stop: 06/11/21 08:59 Last Admin: 05/18/21 07:59 Dose: 40 mg Documented by: Fluoxetine HCl (Fluoxetine Hcl 20 Mg Cap) 20 mg PO TID [facility] Stop: 06/10/21 14:55 Last Admin: 05/18/21 07:58 Dose: 20 mg Documented by: Folic Acid (Folic Acid 1 Mg Tab) 1 mg PO DAILY [facility] Stop: 06/17/21 08:59 Last Admin: 05/18/21 07:58 Dose: 1 mg Documented by: Labetalol HCl (Labetalol Hcl Iv 5 Mg/Ml 20ml) 10 mg IV Q4H PRN PRN Reason: SBP > 170 or DBP > 105 Stop: 06/12/21 18:14 Last Admin: 05/13/21 18:22 Dose: 10 mg Documented by: Losartan Potassium (Losartan Potassium 50 Mg Tab) 50 mg PO DAILY [facility] Stop: 06/11/21 08:59 Last Admin: 05/18/21 07:58 Dose: 50 mg Documented by: Melatonin (Melatonin 3 Mg Tab) 3 mg PO HS PRN PRN Reason: Sleep Stop: 06/13/21 21:06 Miscellaneous (Remove Nicoderm Patch) 1 ea N/A DAILY@0859 [facility] Stop: 06/11/21 08:58 Last Admin: 05/18/21 07:59 Dose: 1 ea Documented by: Multivitamins (Multivitamin Tab) 1 tab PO QAM [facility] Stop: 06/17/21 08:59 Last Admin: 05/18/21 07:59 Dose: 1 tab Documented by: Nicotine (Nicotine 21 Mg/24 Hr Tdsy) 21 mg TD QAM [facility] Stop: 06/11/21 08:59 Last Admin: 05/18/21 07:58 Dose: 21 mg Documented by: Nicotine Polacrilex (Nicotine Polacrilex 2 Mg Gum) 1 piece MT PRN PRN PRN Reason: Agitation Stop: 06/13/21 00:10 Last Admin: 05/14/21 00:22 Dose: 1 piece Documented by: Ondansetron HCl (Ondansetron Inj 2 Mg/Ml 2 Ml Vial) 4 mg IV Q6H PRN PRN Reason: Nausea Stop: 06/10/21 14:55 Last Admin: 05/15/21 08:34 Dose: 4 mg Documented by: Thiamine HCl (Thiamine Hcl 100 Mg Tab) 100 mg PO DAILY [facility] Stop: 06/17/21 08:59 Last Admin: 05/18/21 07:58 Dose: 100 mg Documented by:
--- NOTE | 2021-05-18 10:06 | Critical Care Progress Note ---
Date of Service May 18, 2021 Assessment & Plan (1) Alcohol withdrawal: Plan: Reason Critically Ill: 55-year-old male undergoing treatment for alcohol withdrawal presents to the ICU following worsening delirium tremens with increased Ativan requirements and now requiring Precedex drip. Neuro - Delirium tremens . -Resolved -No history of seizures with withdrawal but will maintain seizure precautions -Continue thiamine, folic acid -Continuous monitoring in ICU while requiring Precedex drip -Will plan to intubate if there is worsening or for symptoms and/or respiratory compromise Anxiety and depressioncontinue Prozac Cardiac - HTNcontinue Cozaar HLDholding statin until LFTs normalize Respiratory - No history of pulmonary disease. Currently maintaining oxygen saturations on room air without respiratory distress. Lungs clear to auscultation Continuous monitoring on pulse ox GI - Hepatic steatosisvisualized on liver ultrasound. Gallbladder is fluid-filled with evidence of gallstones but no evidence of pericholecystitis edema and nondilated. -LFTs trending down, continue to monitor --Elevated lipase No epigastric tenderness Could be from alcohol use Continue to monitor GERDfamotidine RENAL/LYTES - Creatinine within normal limits. Monitor routine BMPs replete electrolytes as indicated - Strict I's and O's ENDO - No history of diabetes or thyroid disease ICU hyperglycemic protocol HEME - --Macrocytic anemia Likely from alcohol use Continue to monitor H&H stable, monitor routine CBCs ID - No indication for infectious process at this --Prophylaxis VTE: Lovenox GI: Pepcid Lines: Peripheral Diet: Regular Plan: In/out: -498, urine output 1200 DC standing IV Ativan Continue with Librium as needed Patient is hemodynamically stable to be downgraded to a medical floor. Please note the above document was generated using voice recognition software. It may contain grammatical, syntax or spelling errors.Any formal questions or concerns about the content, text or information contained within the body of this dictation should be directly addressed to the provider for clarification. (2) Alcohol abuse: (3) GERD (gastroesophageal reflux disease): (4) Hypertension: (5) Depression: (6) Anxiety: (7) Delirium tremens: Admission and Anticipated Discharge Date Admission Date: May 11, 2021 Subjective Patient seen and examined at bedside. No acute distress, no adverse events overnight. Patient got 1 dose of Librium 50 mg overnight. Denies any chest pain, no shortness of breath. No hallucination auditory, tactile or visual. No nausea vomiting Good appetite. Review of Systems 2 Review of Systems: All systems reviewed & are unremarkable except as noted in Subjective Physical Exam Physical Exam: Constitutional: No acute distress HEENT: EOMI, PERRLA Respiratory system: Decreased air entry bilaterally, no wheeze, no rhonchi, no crackles CVS: S1-S2 positive, no murmurs or gallops Abdomen: Soft, nontender, nondistended, positive bowel sounds x4 Extremities: +2 pulses bilaterally radialis/ dorsalis pedis, no cyanosis, no edema Neuro: Awake alert oriented to self and place Psych: Normal mood and affect G/U: No Quintero Skin: no rashes, warm and dry Lymphatic: no cervical or axillary lymphadenopathy Results & Data Results & Data ([facility]) Vital Signs (Past 12 Hours) Vital Signs Temp Pulse Resp BP Pulse Ox 05/18/21 07:21 37.1 C 63 14 109/67 97 05/18/21 06:22 65 20 128/79 95 05/18/21 05:21 67 17 98/70 L 93 05/18/21 04:21 36.9 C 61 19 109/67 95 05/18/21 03:00 68 18 95 05/18/21 02:36 72 19 95 05/18/21 01:21 36.9 C 80 20 133/78 94 05/18/21 00:21 83 15 129/90 93 05/17/21 23:21 36.9 C 69 19 146/94 H 95 05/17/21 22:21 76 18 127/75 95 05/18/21 05:27 05/18/21 05:27 Coding Level of Care Code 40726 Subseq Hosp Care Lvl 2 Diagnoses Alcohol withdrawal F10.230 Complication of substance-induced condition: uncomplicated Alcohol abuse F10.10 GERD (gastroesophageal reflux disease) K21.9 Hypertension I10 Depression F32.9 Anxiety F41.9 Delirium tremens F10.231 (1) Alcohol withdrawal Complication of substance-induced condition: uncomplicated Qualified Code(s): F10.230 - Alcohol dependence with withdrawal, uncomplicated
[2021-05-18] MEDS: ONDANSETRON INJ 2 MG/ML 2 ML VIAL IV PRN (11:07)
--- NOTE | 2021-05-18 12:47 | Med Student Discharge Summary ---
Date of Service May 18, 2021 Admission HPI Per Admitting Provider Gregorio Perez is a 55yo male with history of Depression/Anxiety and EtOH abuse presenting with Etoh withdrawal. Patient's mother is at bedside as well and provides supplemental history. Patient reports being a fairly heavy drinker since 1989. He has participated in rehab in the past - [facility] x 2 and most recently [facility] in 2018. He has never been to and does not identify as "an alcoholic". He does acknowledge that his drinking is a problem. He presents today with EtoH withdrawal. His mother states that he drinks in secret and has been unable to maintain gainful employment - he has quit several jobs. He had been binge drinking since December - reports consuming 2-3 1/5L bottles of Vodka/day. Mother reports he has occasionally become incoherent with hallucinations during this binge. His last drink was yesterday around 19:00. He presents today with abdominal pain, nausea, vomiting, chills and sweats since last night. No additional complaints at this time. Admission Exam (Per Admitting) Constitutional General: patient tremulous, mildly diaphoretic Skin: warm, dry, intact, no rashes or lesions HEENT: NC/AT, PERRL, EOMI, anicteric sclera, conjunctiva without injection, external ear normal to inspection and nontender, nares patent, moist mucus membranes, dentition intact, no oropharyngeal lesions, neck supple, trachea midline, no LAD, no thyromegaly, no JVD Heart: +S1/S2, regular, no m/r/g Lungs: equal air entry bilaterally, no rales/rhonchi/wheezes Abd: +BS, soft, NT/ND, no masses/organomegaly/ascites Ext: warm, 2+ pulses in UE/LE bilaterally, no clubbing/cyanosis or edema Neuro: nonfocal, patient AA&O x 4, speech intact, no facial droop, moving all extremities on command with equal strength 02/15 Discharge Data Consultations 05/11/21 12:54 ED Decision to Admit Stat 05/14/21 21:52 Consult [facility] Stat Hospital Course (1) Alcohol withdrawal: Gregorio Perez is a 55 y/o male with longstanding history of alcohol use disorder (with ~3 prior trials of rehab), depression, anxiety, HTN, and HTD who presented to the ED on 05/11 in alcohol withdrawal with hallucinosis, last drink occurring on 05/10 at 1900. He was transferred to the ICU on 05/14 for close hemodynamic and neurologic monitoring for Delirium Tremens. He was discharged from the hospital on 05/18. Alcohol Withdrawal, Delirium Tremens -Seizure precautions were maintained, AWSS with scheduled IV Ativan, but required admission to the ICU and required IV Dexmedetomidine and scheduled Ativan -Received Folic acid and Thiamine IV and was transitioned to PO -Started Naltrexone on discharge -Follow up with PCP Alcohol-induced Pancreatitis, Resolved -Localized to midepigastric area with radiation to the back, LLQ in setting of transaminitis, hyperbilirubinemia, and elevated lipase -RUQ US: demonstrating hepatic steatosis without cholelithiasis, cholecystitis. or CBD dilation; mild GB sludge; no inflammation seen on partially visualized pancreas -Suspect secondary to alcohol-induced pancreatitis -Pain significantly improved. Lipase downtrending. No abdominal/back pain for several days -Patient was able to tolerate a regular diet for several days Transaminitis, Resolving - Suspected to be secondary to above - LFTs downtrendng; on day of discharge, AST: 37 (vs 714 on admission), ALT: 102 (vs. 692 on admission) - Recommend trending after d/c GERD -Home Pepcid was continued HTN -Home losartan 50 mg PO daily was continued HLD -LFTs downtrendng; on day of discharge, AST: 37 (vs 714 on admission), ALT: 102 (vs. 692 on admission) -Home statin was held at admission due to this elevation -Re-start statin after discharge Depression/Anxiety -Continue Prozac 20mg po TID as dosed at home -Patient will follow up with PCP regarding future CBT and changes in medical ma nagement (2) GERD (gastroesophageal reflux disease): (3) Hypertension: (4) Hyperlipidemia: (5) Depression: Discharge Plan Discharge Items Patient Disposition: Home - Self-Care Reason For Visit: ETOH WITHDRAWAL Discharge Diagnosis: Alcohol Withdrawal/Delirium Tremens Activity: Per Instructions section Non-emergency contact: Primary Care Provider Call non-emergency contact if: your symptoms worsen Follow-up/Referrals: Jaron Woods MD [Family Provider] - 05/22/21 2:10 pm (Appointment will be at [facility] location) Diet: Regular Addtl Attending Provider Instructions: You were admitted to [facility] from 05/11 - 05/18 for a severe alcohol withdrawal. You developed a serious type of alcohol withdrawal called Delirium Tremens, and you were transferred to the Intensive Care Unit for close monitoring and strong IV medications to help get you safely through this alcohol withdrawal. After several days of these strong medications, your symptoms began to improve: you stopped having hallucinations, your tremors improved, your anxiety improved, and you became more calm and oriented. You were transferred out of the ICU on 05/18, and you were discharged on 05/18 in improved, stable condition. You will have a follow up appointment with Dr. Woods (the resident physician who provided your care while you were hospitalized) at [facility] on 05/22 (Saturday) at 2:10 pm, which is located at [address] [place] [address], [place] [address] (phone number: [phone]). He will discuss next steps in management of your alcohol use, to help you with maintaining abstinence from alcohol use. You will start taking Naltrexone, one pill daily, which will help to decrease the euphoric effects of alcohol. Please slate picker this medication from your pharmacy. Please continue to take your home medications as scheduled. Pending Studies at Discharge: No Stand-Alone Forms: My [facility], Smoking Cessation Medications and DC Order Prescriptions: New naltrexone 50 mg tablet 50 mg PO DAILY Qty: 30 RF: 3 Continued atorvastatin 40 mg tablet 40 mg PO DAILY Qty: 90 RF: 3 losartan 50 mg tablet 50 mg PO DAILY Qty: 90 RF: 3 fluoxetine 20 mg capsule 20 mg PO TID Qty: 270 RF: 3 omeprazole 20 mg capsule,delayed release(DR/EC) 20 mg PO DAILY RF: 0 multivitamin Tablet 1 tab PO DAILY RF: 0 milk thistle 140 mg Capsule 0 mg PO DAILY RF: 0 niacin 50 mg Tablet 0 mg PO DAILY RF: 0 vitamin B complex Tablet 1 tab PO DAILY RF: 0 folic acid 1 mg Tablet 0 mg PO DAILY RF: 0 coenzyme Q10 [CoQ-10] 100 mg Capsule 100 mg PO DAILY RF: 0 Precious-C with Bioflavonoids 500-200 mg Tablet 1 tab PO DAILY RF: 0 levomefolate disodium (bulk) Powder 1 ea MISCELLANEOUS DAILY RF: 0 turmeric 400 mg Capsule 0 mg PO DAILY RF: 0 Discharge Orders: Discharge Order (Routine); Ordered 05/18/21 Ordered By: Jaron Woods Admission Data Admit Date/Time: 05/11/21 13:38 Attending Provider: Zain Garces Admit Provider: Brenna Garza Primary Care Provider: Lenny Briceño Other Providers: Brenna Garza ; Mike Navas ; Ludin Gilbert Other Interventions: Discharge Summary Assessment (RN) Last Done: 05/18/21 13:17 Supervising Attestation I personally examined the patient and verified all wells points of history and exam, discussed case, and agree with decision making with Richa Beard MS4. Feeling better, really wants to get home. Asks again about pills for anxiety, and whenever we discussed benzodiazepines having a very narrow, limited role, and was intermediate to long-term use likely causing more harm than good, he expresses good understanding. He is going to follow closely with the resident physician for ongoing management of alcohol abuse and anxiety, with next appointment in a few short days. Will be doing counseling/therapy as well. vitals noted, calm appearing nad. Coherent and oriented, seems to be showing good logic and reasoning.. heent nc at mmm breathing unlabored no accessory muscles good effort no focal neuro deficits EtOH pancreatitis - improved, clinically essentially resolved EtOH abuse/withdrawal -showing improvement overall, stable for home, outpatient for anxiety management. Otherwise as above
--- NOTE | 2021-05-18 16:48 | Billing Data ---
Date of Service May 18, 2021 Coding Level of Care Code D/C DAY MANAGEMENT <30 MINS
== END 2021-05-18 13:45 | disposition home or self-care (01) | DRG 439 ==
LOC: ED 10:39 → 1E 13:38 → SUATTDRO 13:38 → 1E 14:25 → 2S 05-12 06:24 → 1E 05-14 22:00 → 2W 05-18 10:10